=== PATIENT | female | born 1995 | race Two or more races ===

== ENCOUNTER 2016-10-22 15:50 | Emergency (ER) | payer OTHER ==
[~2016-10-22] VITALS: Ht 152.4 cm; Wt 54.4 kg
[~2016-10-22 15:50] MED LIST: BENADRYL25 MG ORAL; IBUPROFEN600 MG ORAL; KENALOG 0.1% CR15 GM APPLIC; MACROBID100 MG ORAL; PERCOCET 5-3251 EACH ORAL; PREDNISONE20 MG ORAL; ZOFRAN ODT4 MG ORAL
--- NOTE | 2016-10-22 16:33 | Emergency Room Report ---
History of Present Illness General Chief Complaint: Pain Source: Patient Present Illness HPI 21-year-old female presents emergency department complaining of 10 out of 10 in severity lower abdominal cramping pain times one day with onset of her menstrual cycle. Patient reports a history of dysmenorrhea which she is often prescribed [place] for her. Patient states she also has had several episodes of loose stool in addition to nausea and vomiting since this a.m. Patient states that usually her painful menstrual cycle is associated with nausea and vomiting however and mildly loose stools, however this morning's 2 episodes of diarrhea is a newer symptom. She reports generalized abdominal cramping. denies fevers or chills denies low back pain. Patient fevers, or chills, denies dysuria, frequency or urgency. Denies . She denies blood in the vomit or stool denies dark tarry stools denies recent antibiotic use. Denies CP, Palpitations, LOC, AMS, dizziness, Changes in Vision, Sensation, paresthesias, or a sudden severe headache. Allergies: Uncoded Allergies: ANESTHISEA (Allergy, Severe, 03/24/15) Patient History Past Medical History: see triage record Past Surgical History: none Last Menstrual Period: 10/22/16 Now: No Immunizations: UTD Reviewed Nursing Documentation: PMH: Agreed, PSxH: Agreed Nursing Documentation-PMH Past Medical History: No Stated History Review of Systems All Other Systems: negative except mentioned in HPI Physical Exam Vital Signs Date Time Temp Pulse Resp B/P Pulse Ox O2 Delivery O2 Flow Rate FiO2 10/22/16 16:06 98.8 67 18 105/63 99 Room Air Sp02 EP Interpretation: reviewed, normal General Appearance: alert, GCS 15, non-toxic, mild distress Head: normocephalic, atraumatic Eyes: bilateral eye PERRL, bilateral eye normal inspection ENT: hearing grossly normal, normal pharynx, no angioedema, normal voice Neck: full range of motion, supple/symm/no masses Respiratory: chest non-tender, lungs clear, normal breath sounds, speaking full sentences Cardiovascular #1: regular rate, rhythm, no edema Gastrointestinal: normal bowel sounds - mildly hyperactive bs in all 4 quadrants, soft, no guarding, no rebound, tenderness - epigastric and LLQ ttp noted, no peritoneal signs, no macburny point ttp Rectal: deferred Musculoskeletal: back normal, gait/station normal, normal range of motion Neurologic: alert, oriented x3, responsive, motor strength/tone normal, sensory intact, speech normal Psychiatric: judgement/insight normal, memory normal, mood/affect normal Skin: normal color, no rash, warm/dry, well hydrated Lymphatic: no adenopathy Medical Decision Making PA Attestation Dr. Perry is my supervising Physician whom patient management has been discussed with. Diagnostic Impression: Primary Impression: UTI (urinary tract infection) Qualified Codes: N30.01 - Acute cystitis with hematuria Additional Impressions: Dysmenorrhea Abdominal pain, colicky Yeast UTI ER Course 21-year-old female presents emergency department complaining of 10 out of 10 in severity lower abdominal cramping pain times one day with onset of her menstrual cycle. Patient reports a history of dysmenorrhea which she is often prescribed [place] for her. Patient states she also has had several episodes of loose stool in addition to nausea and vomiting since this a.m. Patient states that usually her painful menstrual cycle is associated with nausea and vomiting however diarrhea is a newer symptom. She reports generalized abdominal cramping denies fevers or chills denies low back pain. Patient denies dysuria, frequency or urgency. Denies . She denies blood in the vomit or stool denies dark tarry stools denies recent antibiotic use. Ddx considered but are not limited to Gastroenteritis, dysmenorrhea, diverticulitis, acute appendicitis, diarrhea,UC, PUD, GE, pyelonephritis, pancreatitis, gallstone, PID, cystitis Vital signs: are WNL, pt. is afebrile H&PE are most consistent with dysmenorrhea and acute gastroenteritis. ORDERS: -CBC: wbc's are 12.5 remaining values are unremarkable, I believe this is consistent to gastritis and enteritis, PE does not suggest acute abdomen at this time, pt. does not have CVA tenderness - CMP: unremarkable other than elevated glucose of 156 -lipase: WNL -UA: consistent with UTI, WBC's leukocytes, Bacteria, and yeast. ED INTERVENTIONS: -4mg Zofran PO - Pt. stuck her fingers down her throat while PE was in process and did not tolerate PO, pt. states she is nauseated and needs to vomit to relieve symptoms. -4mg Zofran IV -20mg Pepcid IV - 500cc NS -10mg Bentyl PO -30mg Toradol IV - 4mg Morphine IV - After morphine pt. is relieved of pain completely and able to tolerate oral intake. - d/w pt. that we do not provide refills of controlled substances for dysmenorrhea, and instructed pt. that she needs to follow up with either her PCP or OBGYN for prescription of opiates as it is safer to be managed by one prescribing physician. -d/w pt. to follow up with either PCP or OBGYN. d/w pt. to return promptly to the ED with any change in character of current symptoms, or new symptoms. DISCHARGE: At this time pt. is stable for d/c to home. Will provide printed patient care instructions, and any necessary prescriptions. Care plan and follow up instructions have been discussed with the patient prior to discharge. Labs Test 10/22/16 16:23 10/22/16 16:32 10/22/16 17:06 Urine HCG, Qualitative Negative Urine Color Brown Urine Appearance Cloudy Urine pH 5 (4.5-8.0) Urine Specific [place] 1.025 (1.005-1.035) Urine Protein 3+ (NEGATIVE) Urine Glucose (UA) Negative (NEGATIVE) Urine Ketones 2+ (NEGATIVE) Urine Occult Blood 5+ (NEGATIVE) Urine Nitrite Negative (NEGATIVE) Urine Bilirubin Negative (NEGATIVE) Urine Urobilinogen 1 MG/DL (0.0-1.0) Urine Leukocyte Esterase 1+ (NEGATIVE) Urine RBC 20-30 /HPF (0 - 2) Urine WBC 5-10 /HPF (0 - 2) Urine Squamous Epithelial Cells Few /LPF (NONE/OCC) Urine Amorphous Sediment Moderate /LPF (NONE) Urine Bacteria Many /HPF (NONE) Urine Yeast Few /HPF (NONE) White Blood Count 12.4 K/UL (4.8-10.8) Red Blood Count 4.04 M/UL (4.20-5.40) Hemoglobin 13.2 G/DL (12.0-16.0) Hematocrit 38.9 % (37.0-47.0) Mean Corpuscular Volume 96 FL (80-99) Mean Corpuscular Hemoglobin 32.7 PG (27.0-31.0) Mean Corpuscular Hemoglobin Concent 34.0 G/DL (32.0-36.0) Red Cell Distribution Width 12.7 % (11.6-14.8) Platelet Count 200 K/UL (150-450) Mean Platelet Volume 7.1 FL (6.5-10.1) Neutrophils (%) (Auto) % (45.0-75.0) Lymphocytes (%) (Auto) % (20.0-45.0) Monocytes (%) (Auto) % (1.0-10.0) Eosinophils (%) (Auto) % (0.0-3.0) Basophils (%) (Auto) % (0.0-2.0) Sodium Level 141 mEQ/L (135-145) Potassium Level 3.5 mEQ/L (3.4-4.9) Chloride Level 100 mEQ/L (98-107) Carbon Dioxide Level 24 mEQ/L (20-30) Anion Gap 17 (5-15) Blood Urea Nitrogen 11 mg/dL (7-23) Creatinine 0.8 mg/dL (0.5-0.9) Estimat Glomerular Filtration Rate > 60 mL/min (>60) Glucose Level 156 mg/dL (74-106) Calcium Level 8.8 mg/dL (8.6-10.2) Total Bilirubin 0.5 mg/dL (0.0-1.2) Aspartate Amino Transf (AST/SGOT) 22 U/L (5-40) Alanine Aminotransferase (ALT/SGPT) 14 U/L (3-33) Alkaline Phosphatase 45 U/L (35-104) Total Protein 7.6 g/dL (6.6-8.7) Albumin 4.5 g/dL (3.5-5.2) Globulin 3.1 g/dL Albumin/Globulin Ratio 1.4 (1.0-2.7) Lipase 19 U/L (< 60) Last Vital Signs Date Time Temp Pulse Resp B/P Pulse Ox O2 Delivery O2 Flow Rate FiO2 10/22/16 16:06 98.8 67 18 105/63 99 Room Air Disposition: HOME, SELF-CARE Condition: Stable Scripts Fluconazole (FLUCONAZOLE) 100 Mg Tablet 100 MG ORAL DAILY for 3 Days, #3 TAB 0 Refills Prov: Sharon Berry P.A. 10/22/16 Dicyclomine Hcl* (BENTYL*) 10 Mg Capsule 10 MG ORAL FOUR TIMES A DAY for 2 Days, #8 CAP Prov: Sharon Berry 10/22/16 Ondansetron Odt* (ZOFRAN ODT*) 4 Mg Tab.rapdis 4 MG ORAL Q6H Y for Nausea & Vomiting, #20 TAB Prov: Sharon BerryA. 10/22/16 Acetaminophen With Codeine (T#3) (TYLENOL #3 TAB*) Y Tab 1 TAB ORAL Q4H Y for For Pain, #3 TAB Prov: Sharon Berry 10/22/16 Ibuprofen* (MOTRIN*) 600 Mg Tablet 600 MG ORAL THREE TIMES A DAY, #20 TAB 0 Refills Prov: Sharon Berry 10/22/16 Patient Instructions: Abdominal Pain, Adult, [id number], Dysmenorrhea, Easy- to-Read Additional Instructions: Take medications as directed. Follow up with PCP or OBGYN in 3 days Return sooner to ED if new symptoms occur, or current symptoms become worse. *!* Review provided list of free or reduced cost health clinics for follow up * !* - Please note that this Emergency Department Report was dictated using [email or web address] first assistant technology software, occasionally this can lead to erroneous entry secondary to interpretation by the dictation equipment. Sharon Berry October 22, 2016 16:33
[2016-10-22] MEDS ORDERED: Ketorolac 30mg Inj IV ONE (16:45)
[2016-10-22] MEDS ORDERED: Famotidine 20 MG/ 2ML VIAL IVP ONE (16:45)
[2016-10-22 17:20] LABS: MEAN CORPUSCULAR HEMOGLOBIN 32.7 PG (27.0-31.0); MEAN CORPUSCULAR VOLUME 96 FL (80-99); MEAN PLATELET VOLUME 7.1 FL (6.5-10.1); PLATELET COUNT 200 K/UL (150-450); RED BLOOD COUNT 4.04 M/UL (4.20-5.40); RED CELL DISTRIBUTION WIDTH 12.7 % (11.6-14.8); WHITE BLOOD COUNT 12.4 K/UL (4.8-10.8)
[2016-10-22 17:40] LABS: ALANINE AMINOTRANSFERASE 14 U/L (3-33); ALBUMIN/GLOBULIN RATIO 1.4 (1.0-2.7); ANION GAP 17 (5-15); ASPARTATE AMINO TRANSFERASE 22 U/L (5-40); CALCIUM 8.8 mg/dL (8.6-10.2); CARBON DIOXIDE 24 mEQ/L (20-30); CHLORIDE 100 mEQ/L (98-107); CREATININE 0.8 mg/dL (0.5-0.9); GLOMERULAR FILTRATION RATE > 60 mL/min (>60); HEMOLYSIS 1; LIPASE 19 U/L (< 60); POTASSIUM 3.5 mEQ/L (3.4-4.9); SODIUM 141 mEQ/L (135-145); TOTAL PROTEIN 7.6 g/dL (6.6-8.7)
[2016-10-22] MEDS ORDERED: Morphine Sulfate 4mg/ml Inj IVP ONE (17:45)
[2016-10-22 17:50] LABS: APPEARANCE,URINE CLOUDY; KETONES,URINE 2+ (NEGATIVE); LEUKOCYTE ESTERASE ,URINE 1+ (NEGATIVE); NITRITE,URINE NEGATIVE (NEGATIVE); PH,URINE 5 (4.5-8.0); PROTEIN,URINE 3+ (NEGATIVE); UROBILINOGEN,URINE 1 MG/DL (0.0-1.0)
[2016-10-22 17:57] LABS: RBC,URINE 20-30 /HPF (0 - 2)
[2016-10-22 17:58] LABS: AMORPHOUS SEDIMENT,UR MODERATE /LPF; BACTERIA,URINE MANY /HPF; SQUAMOUS EPITHELIAL CELL,UR FEW /LPF (NONE/OCC); YEAST,URINE FEW /HPF
[2016-10-22 18:01] VITALS: BP 118/76
[2016-10-22] MEDS ORDERED: Dicyclomine HCl 10mg/5ml oral soln ORAL ONE (18:15)
[2016-10-22] MEDS ORDERED: IBUPROFEN600 MG ORAL (18:29)
[2016-10-22] MEDS ORDERED: BENTYL10 MG ORAL (18:29)
[2016-10-22] MEDS ORDERED: ZOFRAN ODT4 MG ORAL (18:29)
[2016-10-22] MEDS ORDERED: ACETAMINOPHEN-1 EAC1 ORAL (18:29)
[2016-10-22 18:47] VITALS: BP 125/74
[2016-10-22 19:28] LABS: BAND NEUTROPHILS % (MANUAL) 0 % (0-8); BASOPHILS % (MANUAL) 0 % (0-2); EOSINOPHILS % (MANUAL) 1 % (0-3); LYMPHOCYTES % (MANUAL) 8 % (20-45); NEUTROPHILS % (MANUAL) 87 % (45-75); PLATELET ESTIMATE ADEQUATE; PLATELET MORPHOLOGY NORMAL; TOTAL CELLS COUNTED 100
[2016-10-22] MEDS ORDERED: FLUCONAZOLE100 MG ORAL (21:44)
== END 2016-10-22 18:48 | disposition home or self-care (01) ==
LOC: EMR 16:45
DX: R10.30 Lower abdominal pain, unspecified (principal); N39.0 Urinary tract infection, site not specified; N94.6 Dysmenorrhea, unspecified; B37.49 Other urogenital candidiasis
CPT/HCPCS: 36415; 80053; 81003; 81025; 83690; 85007; 85025; 87086; 96360; 96361; 96374; 96375; 99284; J1885; J2270; J2405; J7040; S0028

== ENCOUNTER 2017-02-22 17:01 | Emergency (ER) | payer OTHER ==
[~2017-02-22] VITALS: Ht 162.6 cm; Wt 49.9 kg
[~2017-02-22 17:01] MED LIST changes: +ACETAMINOPHEN-1 EAC1 ORAL; +BENTYL10 MG ORAL; +FLUCONAZOLE100 MG ORAL
[2017-02-22 17:28] VITALS: BP 116/75
--- NOTE | 2017-02-22 17:47 | Emergency Room Report ---
History of Present Illness General Chief Complaint: Abdominal Pain Source: Patient Present Illness HPI 21-year-old female presents to the emergency department complaining of vomiting , nausea, and 10/10 in severity lower abdominal pain described as cramping since yesterday. Patient reports that she is currently on her period and intermittently has very painful periods but present in this fashion. Patient denies changes in character from previous episodes. denies constipation or diarrhea, denies ill contacts or recent travel. denies blood in the vomit or stool. Patient denies fevers or chills. Patient states that she was placed onto oral contraceptives by her PRODUCT MARKETING ANALYST to help minimize painful periods however she continues to have symptoms. Patient denies vaginal discharge other than bleeding, denies dyspareunia or history of STDs. Denies frequency, dysuria, hematuria.Denies CP, Palpitations, LOC, AMS, dizziness, Changes in Vision, Sensation, paresthesias, or a sudden severe headache. Allergies: Uncoded Allergies: ANESTHISEA (Allergy, Severe, 03/24/15) Patient History Past Medical History: see triage record Past Surgical History: none Pertinent Family History: none Last Menstrual Period: 02/21/17 Now: No Reviewed Nursing Documentation: PMH: Agreed, PSxH: Agreed Nursing Documentation-PMH Past Medical History: No Stated History Review of Systems All Other Systems: negative except mentioned in HPI Physical Exam Vital Signs Date Time Temp Pulse Resp B/P (MAP) Pulse Ox O2 Delivery O2 Flow Rate FiO2 02/22/17 17:12 98.1 69 16 116/75 100 Room Air Sp02 EP Interpretation: reviewed, normal General Appearance: no apparent distress, alert, GCS 15, non-toxic Head: normocephalic, atraumatic Eyes: bilateral eye normal inspection, bilateral eye PERRL ENT: hearing grossly normal, normal voice Neck: full range of motion Respiratory: lungs clear, normal breath sounds, speaking full sentences Cardiovascular #1: regular rate, rhythm Gastrointestinal: normal bowel sounds, non tender, soft, no guarding, no rebound, tenderness - moderate lower midline abd/ pubic ttp, no peritoneal signs , no unilateral adnexal ttp. , other Rectal: deferred Genitourinary: normal inspection, no CVA tenderness Musculoskeletal: back normal, gait/station normal, normal range of motion, non- tender Neurologic: alert, oriented x3, responsive, motor strength/tone normal, sensory intact, speech normal Psychiatric: judgement/insight normal, memory normal, mood/affect normal Skin: normal color, no rash, warm/dry, well hydrated Lymphatic: no adenopathy Medical Decision Making PA Attestation Dr. Antonio is my supervising Physician whom patient management has been discussed with. Diagnostic Impression: Primary Impression: Dysmenorrhea ER Course 21-year-old female presents to the emergency department complaining of vomiting , nausea, and 10/10 in severity lower abdominal pain described as cramping since yesterday. Patient reports that she is currently on her period and intermittently has very painful periods but present in this fashion. Patient denies changes in character from previous episodes. denies constipation or diarrhea, denies ill contacts or recent travel. denies blood in the vomit or stool. Patient denies fevers or chills. Patient states that she was placed onto oral contraceptives by her PRODUCT MARKETING ANALYST to help minimize painful periods however she continues to have symptoms. Patient denies vaginal discharge other than bleeding, denies dyspareunia or history of STDs. Denies frequency, dysuria, hematuria.Denies CP, Palpitations, LOC, AMS, dizziness, Changes in Vision, Sensation, paresthesias, or a sudden severe headache. Ddx considered but are not limited to Diverticulitis, acute appy, diarrhea,UC, PUD, GE, pancreatitis, gallstone, UTI , , dysmenorrhea, ovarian torsion just to name a few Vital signs: are WNL, pt. is afebrile H&PE are most consistent with dysmennorrhea, will do basic lab work. ORDERS: -CBC, CMP, lipase : unremarkable, electrolytes ok, no evidence of infection -UA: unremarkable -Urine Hcg : Negative ED INTERVENTIONS: -- zofran 4mg. -Toradol IV 15mg -Re-evaluation: pt. states she feels much better, has not exhibited vomiting while in the ED. pt. states pain has resolved. I do not suspect an emergent condition at this time. with current presentation pt. is stable for close outpatient follow up. D/w pt. to return to ED with worsening or new symptoms. DISCHARGE: At this time pt. is stable for d/c to home. Will provide printed patient care instructions, and any necessary prescriptions. Care plan and follow up instructions have been discussed with the patient prior to discharge. Labs Test 9/4/17 18:50 02/22/17 18:55 White Blood Count 10.7 K/UL (4.8-10.8) Red Blood Count 3.72 M/UL (4.20-5.40) Hemoglobin 12.3 G/DL (12.0-16.0) Hematocrit 35.9 % (37.0-47.0) Mean Corpuscular Volume 96 FL (80-99) Mean Corpuscular Hemoglobin 32.9 PG (27.0-31.0) Mean Corpuscular Hemoglobin Concent 34.1 G/DL (32.0-36.0) Red Cell Distribution Width 11.8 % (11.6-14.8) Platelet Count 197 K/UL (150-450) Mean Platelet Volume 7.2 FL (6.5-10.1) Neutrophils (%) (Auto) % (45.0-75.0) Lymphocytes (%) (Auto) % (20.0-45.0) Monocytes (%) (Auto) % (1.0-10.0) Eosinophils (%) (Auto) % (0.0-3.0) Basophils (%) (Auto) % (0.0-2.0) Sodium Level 143 mEQ/L (135-145) Potassium Level 4.2 mEQ/L (3.4-4.9) Chloride Level 106 mEQ/L (98-107) Carbon Dioxide Level 25 mEQ/L (20-30) Anion Gap 12 (5-15) Blood Urea Nitrogen 10 mg/dL (7-23) Creatinine 0.8 mg/dL (0.5-0.9) Estimat Glomerular Filtration Rate > 60 mL/min (>60) Glucose Level 87 mg/dL (74-106) Calcium Level 9.1 mg/dL (8.6-10.2) Total Bilirubin 0.5 mg/dL (0.0-1.2) Aspartate Amino Transf (AST/SGOT) 15 U/L (5-40) Alanine Aminotransferase (ALT/SGPT) 6 U/L (3-33) Alkaline Phosphatase 44 U/L (35-104) Total Protein 7.5 g/dL (6.6-8.7) Albumin 4.6 g/dL (3.5-5.2) Globulin 2.9 g/dL Albumin/Globulin Ratio 1.5 (1.0-2.7) Lipase 22 U/L (< 60) Urine Color Yellow Urine Appearance Clear Urine pH 5 (4.5-8.0) Urine Specific [place] 1.025 (1.005-1.035) Urine Protein 2+ (NEGATIVE) Urine Glucose (UA) Negative (NEGATIVE) Urine Ketones 4+ (NEGATIVE) Urine Occult Blood 4+ (NEGATIVE) Urine Nitrite Negative (NEGATIVE) Urine Bilirubin Negative (NEGATIVE) Urine Urobilinogen 1 MG/DL (0.0-1.0) Urine Leukocyte Esterase 1+ (NEGATIVE) Urine RBC 5-10 /HPF (0 - 2) Urine WBC 2-4 /HPF (0 - 2) Urine Squamous Epithelial Cells Few /LPF (NONE/OCC) Urine Bacteria Few /HPF (NONE) Urine HCG, Qualitative Negative Last Vital Signs Date Time Temp Pulse Resp B/P (MAP) Pulse Ox O2 Delivery O2 Flow Rate FiO2 02/22/17 17:28 98.1 16 116/75 100 Room Air 02/22/17 17:12 69 Disposition: HOME, SELF-CARE Condition: Stable Scripts Ondansetron Odt* (ZOFRAN ODT*) 4 Mg Tab.rapdis 4 MG ORAL Q6H Y for Nausea & Vomiting, #20 TAB Prov: Sharon Berry 02/22/17 Ibuprofen* (MOTRIN*) 600 Mg Tablet 600 MG ORAL THREE TIMES A DAY, #20 TAB 0 Refills Prov: Sharon Berry 02/22/17 Patient Instructions: Dysmenorrhea, [id number] Additional Instructions: Take medications as directed. Follow up with a Primary Care Provider in 3-5 days, even if your symptoms have resolved. --Please review list of primary care clinics, if you do not already have a primary care provider Return sooner to ED if new symptoms occur, or current symptoms become worse. - Please note that this Emergency Department Report was dictated using [email or web address] designer technology software, occasionally this can lead to erroneous entry secondary to interpretation by the dictation equipment. Sharon Berry Feb 22, 2017 17:47
[2017-02-22] MEDS ORDERED: Ketorolac 60mg Inj IM ONE (18:45)
[2017-02-22 19:06] LABS: MEAN CORPUSCULAR HEMOGLOBIN 32.9 PG (27.0-31.0); MEAN CORPUSCULAR HGB CONC 34.1 G/DL (32.0-36.0); MEAN CORPUSCULAR VOLUME 96 FL (80-99); MEAN PLATELET VOLUME 7.2 FL (6.5-10.1); PLATELET COUNT 197 K/UL (150-450); RED BLOOD COUNT 3.72 M/UL (4.20-5.40); RED CELL DISTRIBUTION WIDTH 11.8 % (11.6-14.8); WHITE BLOOD COUNT 10.7 K/UL (4.8-10.8)
[2017-02-22 19:08] LABS: APPEARANCE,URINE CLEAR; KETONES,URINE 4+ (NEGATIVE); LEUKOCYTE ESTERASE ,URINE 1+ (NEGATIVE); NITRITE,URINE NEGATIVE (NEGATIVE); PH,URINE 5 (4.5-8.0); PROTEIN,URINE 2+ (NEGATIVE); UROBILINOGEN,URINE 1 MG/DL (0.0-1.0)
[2017-02-22 19:16] LABS: ALANINE AMINOTRANSFERASE 6 U/L (3-33); ALBUMIN/GLOBULIN RATIO 1.5 (1.0-2.7); ANION GAP 12 (5-15); ASPARTATE AMINO TRANSFERASE 15 U/L (5-40); CALCIUM 9.1 mg/dL (8.6-10.2); CARBON DIOXIDE 25 mEQ/L (20-30); CHLORIDE 106 mEQ/L (98-107); CREATININE 0.8 mg/dL (0.5-0.9); GLOMERULAR FILTRATION RATE > 60 mL/min (>60); HEMOLYSIS 3; LIPASE 22 U/L (< 60); POTASSIUM 4.2 mEQ/L (3.4-4.9); SODIUM 143 mEQ/L (135-145); TOTAL PROTEIN 7.5 g/dL (6.6-8.7)
[2017-02-22 19:19] LABS: BACTERIA,URINE FEW /HPF; SQUAMOUS EPITHELIAL CELL,UR FEW /LPF (NONE/OCC)
[2017-02-22] MEDS ORDERED: ZOFRAN ODT4 MG ORAL (19:39)
[2017-02-22] MEDS ORDERED: IBUPROFEN600 MG ORAL (19:39)
[2017-02-22 20:00] VITALS: BP 120/80
[2017-02-22 20:15] LABS: BAND NEUTROPHILS % (MANUAL) 1 % (0-8); BASOPHILS % (MANUAL) 0 % (0-2); EOSINOPHILS % (MANUAL) 0 % (0-3); LYMPHOCYTES % (MANUAL) 6 % (20-45); NEUTROPHILS % (MANUAL) 89 % (45-75); PLATELET ESTIMATE ADEQUATE; PLATELET MORPHOLOGY NORMAL; TOTAL CELLS COUNTED 100
== END 2017-02-22 20:00 | disposition home or self-care (01) ==
LOC: EMR 17:31
DX: N94.6 Dysmenorrhea, unspecified (principal); Z79.3 Long term (current) use of hormonal contraceptives; Z88.8 Allergy status to other drugs, medicaments and biological substances
CPT/HCPCS: 36415; 80053; 81003; 81025; 83690; 85007; 85025; 96372; 96374; 99284; J2405

== ENCOUNTER 2017-06-27 13:44 | Emergency (ER) | payer OTHER ==
[~2017-06-27] VITALS: Ht 154.9 cm; Wt 52.2 kg
[2017-06-27] MEDS ORDERED: NKM (14:07)
[2017-06-27] MEDS ORDERED: Ketorolac 30mg Inj IV ONE (14:15)
--- NOTE | 2017-06-27 14:17 | Emergency Room Report ---
History of Present Illness General Chief Complaint: Abdominal Pain Source: Patient Present Illness HPI 21-year-old female, history of dysmenorrhea, multiple visits to the emergency room p/w abdominal pain for one day. Patient states pain started after getting her period yesterday, points to suprapubic region, non radiating, cramping in nature, intermittent. No relieving or exacerbating factors. Severity is 5/10. Pt reports n/v, more than 5 episodes of nbnb vomiting, denies diarrhea Denies fever, chills. No hx of abdominal surgeries. No hx of endoscopies/colonoscopies. States that she has experienced the same pain in the past, usually happens every month with her periods. States she went to see an MOVEMENT THERAPIST who put her on control, however was not able to follow up with her because of insurance Allergies: Uncoded Allergies: ANESTHISEA (Allergy, Severe, 03/24/15) Patient History Past Medical History: see triage record Past Surgical History: none Pertinent Family History: none Last Menstrual Period: Current Reviewed Nursing Documentation: PMH: Agreed, PSxH: Agreed Nursing Documentation-PMH Past Medical History: No Stated History Review of Systems All Other Systems: negative except mentioned in HPI Physical Exam Vital Signs Date Time Temp Pulse Resp B/P (MAP) Pulse Ox O2 Delivery O2 Flow Rate FiO2 06/27/17 14:02 98.1 53 20 125/86 99 Room Air Sp02 EP Interpretation: reviewed, normal General Appearance: alert, GCS 15, non-toxic, mild distress Head: normocephalic, atraumatic Eyes: bilateral eye normal inspection, bilateral eye PERRL, bilateral eye EOMI ENT: normal ENT inspection, normal pharynx, normal voice, moist mucus membranes Neck: normal inspection, full range of motion, supple Respiratory: normal inspection, lungs clear, normal breath sounds, no respiratory distress, no retraction, no wheezing, speaking full sentences, chest symmetrical Cardiovascular #1: normal inspection, regular rate, rhythm, normal capillary refill Cardiovascular #2: 2+ radial (R), 2+ radial (L) Gastrointestinal: normal inspection, non tender, soft, non-distended, no guarding Musculoskeletal: normal inspection, back normal, normal range of motion, non- tender Neurologic: normal inspection, alert, oriented x3, responsive, motor strength/ tone normal, sensory intact, normal gait, speech normal Psychiatric: normal inspection, judgement/insight normal, memory normal Skin: normal inspection, normal color, no rash, warm/dry, well hydrated, normal turgor Medical Decision Making Diagnostic Impression: Primary Impression: Dysmenorrhea Additional Impression: UTI (urinary tract infection) ER Course 21-year-old female, history of dysmenorrhea, with suprapubic abdominal pain Differential Diagnosis: Dysmenorrhea Gastritis, gastroenteritis, cholecystitis, appendicitis, diverticulitis, UTI/ pyelo Ovarian pathology At this time abdomen is soft nontender all quadrants, not likely to have acute intra-abdominal surgical pathology, will hold CT for now. Plan: Basic labs, ua pain control, IVF ER course: Patient has remained stable during ED stay. Pain improved. Repeat abdominal exam is nontender. Tolerating PO +UTI will dc with abx Disposition: Patient is to be discharged to home. Prescriptions given are Motrin + macrobid and pyridium Patient is instructed to follow up with their primary care doctor within 5 days. Patient is instructed to follow up with MOVEMENT THERAPIST within 3 days. Strict return precautions discussed with patient such as fever, chills, worsening/severe abdominal pain, nausea, vomiting, black or bloody stools, which may indicate severe illness. Patient verbalizes understanding and agrees with plan. Please note that this Emergency Department Report was dictated using [email or web address] teacher technology software, occasionally this can lead to erroneous entry secondary to interpretation by the dictation equipment Rhythm Strip EP Interpretation: Yes Rate: 52 Rhythm: NSR, no PVCs, no ectopy Laboratory Tests Test 06/27/17 14:15 06/27/17 15:45 White Blood Count 9.4 K/UL (4.8-10.8) Red Blood Count 4.14 M/UL (4.20-5.40) L Hemoglobin 12.9 G/DL (12.0-16.0) Hematocrit 39.2 % (37.0-47.0) Mean Corpuscular Volume 95 FL (80-99) Mean Corpuscular Hemoglobin 31.0 PG (27.0-31.0) Mean Corpuscular Hemoglobin Concent 32.8 G/DL (32.0-36.0) Red Cell Distribution Width 12.7 % (11.6-14.8) Platelet Count 226 K/UL (150-450) Mean Platelet Volume 7.5 FL (6.5-10.1) Neutrophils (%) (Auto) % (45.0-75.0) Lymphocytes (%) (Auto) % (20.0-45.0) Monocytes (%) (Auto) % (1.0-10.0) Eosinophils (%) (Auto) % (0.0-3.0) Basophils (%) (Auto) % (0.0-2.0) Differential Total Cells Counted 100 Neutrophils % (Manual) 85 % (45-75) H Lymphocytes % (Manual) 8 % (20-45) L Monocytes % (Manual) 5 % (1-10) Eosinophils % (Manual) 2 % (0-3) Basophils % (Manual) 0 % (0-2) Band Neutrophils 0 % (0-8) Platelet Estimate Adequate Platelet Morphology Normal Red Blood Cell Morphology Normal Sodium Level 141 MMOL/L (136-145) Potassium Level 3.7 MMOL/L (3.5-5.1) Chloride Level 109 MMOL/L (98-107) H Carbon Dioxide Level 24 MMOL/L (21-32) Anion Gap 8 mmol/L (5-15) Blood Urea Nitrogen 10 mg/dL (7-18) Creatinine 0.7 MG/DL (0.55-1.30) Estimate Glomerular Filtration Rate > 60 mL/min (>60) Glucose Level 101 MG/DL (74-106) Calcium Level 7.8 MG/DL (8.5-10.1) L Total Bilirubin 0.6 MG/DL (0.2-1.0) Aspartate Amino Transferase (AST) 26 U/L (15-37) Alanine Aminotransferase (ALT) 26 U/L (12-78) Alkaline Phosphatase 49 U/L (46-116) Total Protein 7.9 G/DL (6.4-8.2) Albumin 4.1 G/DL (3.4-5.0) Globulin 3.8 g/dL Albumin/Globulin Ratio 1.1 (1.0-2.7) Lipase 94 U/L (73-393) Urine Color Pale yellow Urine Appearance Slightly cloudy Urine pH 8 (4.5-8.0) Urine Specific [place] 1.010 (1.005-1.035) Urine Protein 2+ (NEGATIVE) H Urine Glucose (UA) Negative (NEGATIVE) Urine Ketones 3+ (NEGATIVE) H Urine Occult Blood 5+ (NEGATIVE) H Urine Nitrite Negative (NEGATIVE) Urine Bilirubin Negative (NEGATIVE) Urine Urobilinogen 1 MG/DL (0.0-1.0) H Urine Leukocyte Esterase 1+ (NEGATIVE) H Urine RBC Tntc /HPF (0 - 2) H Urine WBC 5-10 /HPF (0 - 2) H Urine Squamous Epithelial Cells Moderate /LPF (NONE/OCC) H Urine Bacteria Moderate /HPF (NONE) H Urine Mucus Few /LPF (NONE/OCC) H Urine HCG, Qualitative Negative Last Vital Signs Date Time Temp Pulse Resp B/P (MAP) Pulse Ox O2 Delivery O2 Flow Rate FiO2 06/27/17 14:02 98.1 53 20 125/86 99 Room Air Disposition: HOME, SELF-CARE Condition: Improved Scripts Phenazopyridine Hcl* (PYRIDIUM*) 200 Mg Tablet 200 MG ORAL THREE TIMES A DAY, #14 TAB 0 Refills Prov: Dalila Min M.D. 06/27/17 Nitrofurantoin Monohyd/M-Cryst* (MACROBID 100 MG*) 100 Mg Capsule 100 MG ORAL EVERY 12 HOURS for 7 Days, #14 CAP 0 Refills Prov: Dalila Min M.D. 06/27/17 Ibuprofen* (MOTRIN*) 600 Mg Tablet 600 MG ORAL Q8H Y for For Pain, #30 TAB 0 Refills Prov: Dalila Min M.D. 06/27/17 Patient Instructions: Abdominal Pain, Adult, Dysmenorrhea Dalila Min M.D. Jun 27, 2017 14:17
[2017-06-27 14:36] LABS: HEMATOCRIT 39.2 % (37.0-47.0); HEMOGLOBIN 12.9 G/DL (12.0-16.0); MEAN CORPUSCULAR VOLUME 95 FL (80-99); PLATELET COUNT 226 K/UL (150-450); RED BLOOD COUNT 4.14 M/UL (4.20-5.40); RED CELL DISTRIBUTION WIDTH 12.7 % (11.6-14.8); WHITE BLOOD COUNT 9.4 K/UL (4.8-10.8)
[2017-06-27 14:39] LABS: ANION GAP 8 mmol/L (5-15); BLOOD UREA NITROGEN 10 mg/dL (7-18); CALCIUM 7.8 MG/DL (8.5-10.1); CARBON DIOXIDE 24 MMOL/L (21-32); CHLORIDE 109 MMOL/L (98-107); CREATININE 0.7 MG/DL (0.55-1.30); POTASSIUM 3.7 MMOL/L (3.5-5.1); SODIUM 141 MMOL/L (136-145)
[2017-06-27 14:44] LABS: ALANINE AMINOTRANSFERASE 26 U/L (12-78); ALBUMIN 4.1 G/DL (3.4-5.0); ALBUMIN/GLOBULIN RATIO 1.1 (1.0-2.7); ALKALINE PHOSPHATASE 49 U/L (46-116); ASPARTATE AMINO TRANSFERASE 26 U/L (15-37); BILIRUBIN,TOTAL 0.6 MG/DL (0.2-1.0)
[2017-06-27] MEDS ORDERED: IBUPROFEN600 MG ORAL (15:31)
[2017-06-27 16:08] LABS: APPEARANCE,URINE SLIGHTLY CLOUDY; BILIRUBIN, URINE NEGATIVE (NEGATIVE); COLOR,URINE PALE YELLOW; GLUCOSE, URINE (UA) NEGATIVE (NEGATIVE); KETONES,URINE 3+ (NEGATIVE); LEUKOCYTE ESTERASE ,URINE 1+ (NEGATIVE); NITRITE,URINE NEGATIVE (NEGATIVE); PH,URINE 8 (4.5-8.0); PROTEIN,URINE 2+ (NEGATIVE); UROBILINOGEN,URINE 1 MG/DL (0.0-1.0)
[2017-06-27] MEDS ORDERED: NITROFURANTOIN100 M2 ORAL (16:23)
[2017-06-27] MEDS ORDERED: PHENAZOPYRIDIN200 MG ORAL (16:23)
[2017-06-27 16:40] VITALS: BP 102/62
== END 2017-06-27 16:40 | disposition home or self-care (01) ==
LOC: EMR 14:10
DX: N94.6 Dysmenorrhea, unspecified (principal); N39.0 Urinary tract infection, site not specified; R10.9 Unspecified abdominal pain; Z88.4 Allergy status to anesthetic agent
CPT/HCPCS: 36415; 80053; 81003; 81025; 83690; 85007; 85025; 87086; 96361; 96374; 96375; 99284; J1885; J2405

== ENCOUNTER 2017-08-01 23:32 | Emergency (ER) | payer OTHER ==
[~2017-08-01] VITALS: Ht 160 cm; Wt 49.9 kg
[~2017-08-01 23:32] MED LIST changes: +NITROFURANTOIN100 M2 ORAL; +NKM; +PHENAZOPYRIDIN200 MG ORAL
--- NOTE | 2017-08-02 00:05 | Emergency Room Report ---
History of Present Illness General Chief Complaint: Burn/Smoke Inhalation Source: Patient Present Illness HPI Patient presents with fletcher with hot grease on his happened before work on . Her parts sales manager told her not to come in after seeing photographs of the blisters. The blisters have popped out. She states her tetanus is up-to-date. She needs a note for work. Denies pain at this time. Initially used neosporin then switched to akira butter. One blister on face popped yesterday. No other somatic complaints. In past has been seen for dysmenorrhea. Allergies: Uncoded Allergies: ANESTHISEA (Allergy, Severe, 03/24/15) Patient History Past Medical History: see triage record Social History: Denies: smoking Social History Narrative working Last Menstrual Period: 06/29/17 Now: No : 0 Para: 0 Reviewed Nursing Documentation: PMH: Agreed, PSxH: Agreed Review of Systems All Other Systems: negative except mentioned in HPI Physical Exam Vital Signs Date Time Temp Pulse Resp B/P (MAP) Pulse Ox O2 Delivery O2 Flow Rate FiO2 08/01/17 23:33 76 14 150/76 99 Room Air Sp02 EP Interpretation: reviewed, normal General Appearance: well appearing, no apparent distress Head: normocephalic, atraumatic Eyes: bilateral eye normal inspection, bilateral eye PERRL ENT: hearing grossly normal, normal voice Neck: full range of motion, supple Respiratory: no respiratory distress, speaking full sentences Musculoskeletal: no calf tenderness Neurologic: alert, normal gait, grossly normal Psychiatric: mood/affect normal Skin: fletcher - face and R forearm. 1st and 2nd degree - splatters Medical Decision Making Diagnostic Impression: Primary Impression: First and second-degree fletcher ER Course Patient presents with hot oil fletcher face and R forearm several days ago. She has missed work per her parts sales manager. There is no evidence of infection at this time. She is requesting time off of work. Discussed precautions regarding the fletcher. Minimal pain at this time. Local treatment. Discussed low likelihood of scarring. Patient stable for outpatient observation and treatment. Last Vital Signs Date Time Temp Pulse Resp B/P (MAP) Pulse Ox O2 Delivery O2 Flow Rate FiO2 08/02/17 00:16 98.9 78 14 148/72 99 Room Air Status: improved Disposition: HOME, SELF-CARE Condition: Improved Scripts Bacitracin (Bacitracin) 28.4 Gm Oint...g. 1 APPLIC TOPIC BID, #20 GM Prov: Delfino Antonio M.D. 08/02/17 Delfino Antonio M.D. Aug 02, 2017 00:04
[2017-08-02] MEDS ORDERED: BACITRACIN15 GM TOPIC (00:08)
[2017-08-02 00:15] VITALS: BP 148/72
[2017-08-02] MEDS ORDERED: Bacitracin Oint UD TOPIC ONE (00:15)
[2017-08-02 00:16] VITALS: BP 148/72
[2017-08-02] MEDS ORDERED: ZOFRAN4 MG ORAL (21:03)
[2017-08-02] MEDS ORDERED: IBUPROFEN400 MG ORAL (21:03)
== END 2017-08-02 00:16 | disposition home or self-care (01) ==
LOC: EMR 23:59
DX: T20.20XA Burn of second degree of head, face, and neck, unspecified site, initial encounter (principal); T22.211A Burn of second degree of right forearm, initial encounter; X10.2XXA Contact with fats and cooking oils, initial encounter; Y93.G3 Activity, cooking and baking; Y92.9 Unspecified place or not applicable
CPT/HCPCS: 99283

== ENCOUNTER 2017-08-02 19:39 | Emergency (ER) | payer OTHER ==
[~2017-08-02] VITALS: Ht 160 cm; Wt 49.9 kg
[~2017-08-02 19:39] MED LIST changes: +BACITRACIN15 GM TOPIC
[2017-08-02] MEDS ORDERED: Ketorolac 30mg Inj IV ONE (20:30)
[2017-08-02 20:54] LABS: HEMOGLOBIN 13.6 G/DL (12.0-16.0); MEAN CORPUSCULAR VOLUME 95 FL (80-99); PLATELET COUNT 201 K/UL (150-450); RED CELL DISTRIBUTION WIDTH 12.9 % (11.6-14.8); WHITE BLOOD COUNT 8.2 K/UL (4.8-10.8)
[2017-08-02 20:55] LABS: ANION GAP 9 mmol/L (5-15); BLOOD UREA NITROGEN 9 mg/dL (7-18); CALCIUM 9.1 MG/DL (8.5-10.1); CARBON DIOXIDE 26 MMOL/L (21-32); CHLORIDE 104 MMOL/L (98-107); CREATININE 0.8 MG/DL (0.55-1.30); POTASSIUM 3.8 MMOL/L (3.5-5.1); SODIUM 139 MMOL/L (136-145)
[2017-08-02 20:56] LABS: APPEARANCE,URINE SLIGHTLY CLOUDY; BILIRUBIN, URINE NEGATIVE (NEGATIVE); COLOR,URINE RED; GLUCOSE, URINE (UA) NEGATIVE (NEGATIVE); KETONES,URINE 1+ (NEGATIVE); LEUKOCYTE ESTERASE ,URINE NEGATIVE (NEGATIVE); NITRITE,URINE NEGATIVE (NEGATIVE); PH,URINE 5 (4.5-8.0); PROTEIN,URINE 4+ (NEGATIVE); UROBILINOGEN,URINE NORMAL MG/DL (0.0-1.0)
[2017-08-02 21:00] LABS: ALANINE AMINOTRANSFERASE 18 U/L (12-78); ALBUMIN 4.1 G/DL (3.4-5.0); ALBUMIN/GLOBULIN RATIO 1.1 (1.0-2.7); ALKALINE PHOSPHATASE 50 U/L (46-116); ASPARTATE AMINO TRANSFERASE 19 U/L (15-37); BILIRUBIN,TOTAL 0.3 MG/DL (0.2-1.0)
[2017-08-02] MEDS ORDERED: ZOFRAN4 MG ORAL (21:03)
[2017-08-02] MEDS ORDERED: IBUPROFEN400 MG ORAL (21:03)
[2017-08-02] MEDS ORDERED: Acetaminophen 500mg (ES) tab ORAL ONE (21:15)
[2017-08-02] MEDS ORDERED: Haloperidol 5mg/ml Inj IM ONE (21:30)
[2017-08-02 22:12] VITALS: BP 131/83
--- NOTE | 2017-08-07 08:37 | Emergency Room Report ---
History of Present Illness General Chief Complaint: Abdominal Pain Source: Patient Present Illness HPI Patient is a 22 year old female who presented after increased suprapubic cramping. Patient had previous similar symptoms. She reports nausea and vomiting. She reports having similar episodes during menses. She denies vaginal discharge. She reports normal amount of bleeding. She reports multiple episodes of nonbloody emesis. Allergies: Uncoded Allergies: ANESTHISEA (Allergy, Severe, 03/24/15) Patient History Past Medical History: see triage record Last Menstrual Period: now Now: No Reviewed Nursing Documentation: PMH: Agreed, PSxH: Agreed Nursing Documentation-PMH Past Medical History: No History, Except For Review of Systems All Other Systems: negative except mentioned in HPI Physical Exam Vital Signs Date Time Temp Pulse Resp B/P (MAP) Pulse Ox O2 Delivery O2 Flow Rate FiO2 08/02/17 19:51 97.9 77 20 131/83 96 Room Air 97.9 Sp02 EP Interpretation: reviewed, normal General Appearance: normal inspection, well appearing, no apparent distress, alert, GCS 15, non-toxic Head: atraumatic ENT: normal ENT inspection, hearing grossly normal, normal voice Neck: normal inspection, full range of motion, supple, no bony tend Respiratory: normal inspection, lungs clear, normal breath sounds, no respiratory distress, no retraction, no wheezing Cardiovascular #1: regular rate, rhythm, no edema Gastrointestinal: normal inspection, normal bowel sounds, soft, no guarding, no hernia, tenderness - suprapubic Genitourinary: no CVA tenderness Musculoskeletal: normal inspection, back normal, normal range of motion Neurologic: normal inspection, alert, responsive, speech normal Psychiatric: normal inspection, judgement/insight normal, mood/affect normal Skin: normal inspection, normal color, no rash Medical Decision Making Diagnostic Impression: Primary Impression: Dysmenorrhea ER Course Patient presented for abdominal pain. Differential diagnosis included but was not limited to anemia, pelvic inflammatory disease, dysmenorhea, ovarian torsion , appendicitis among others. Laboratory testing was ordered due to patient complexity. Laboratory studies were unremarkable. Patient was noted to have improvement in symptoms after IV fluids and Haldol for nausea. Patient reported feeling better and wanting to leave. Patient was advised to follow up with ObGyn for further testing. She was to return for any concerns. Labs Test 08/02/17 19:55 White Blood Count 8.2 K/UL (4.8-10.8) Red Blood Count 4.40 M/UL (4.20-5.40) Hemoglobin 13.6 G/DL (12.0-16.0) Hematocrit 42.0 % (37.0-47.0) Mean Corpuscular Volume 95 FL (80-99) Mean Corpuscular Hemoglobin 30.9 PG (27.0-31.0) Mean Corpuscular Hemoglobin Concent 32.4 G/DL (32.0-36.0) Red Cell Distribution Width 12.9 % (11.6-14.8) Platelet Count 201 K/UL (150-450) Mean Platelet Volume 7.4 FL (6.5-10.1) Neutrophils (%) (Auto) % (45.0-75.0) Lymphocytes (%) (Auto) % (20.0-45.0) Monocytes (%) (Auto) % (1.0-10.0) Eosinophils (%) (Auto) % (0.0-3.0) Basophils (%) (Auto) % (0.0-2.0) Differential Total Cells Counted 100 Neutrophils % (Manual) 84 % (45-75) Lymphocytes % (Manual) 9 % (20-45) Monocytes % (Manual) 6 % (1-10) Eosinophils % (Manual) 0 % (0-3) Basophils % (Manual) 0 % (0-2) Band Neutrophils 1 % (0-8) Platelet Estimate Adequate Platelet Morphology Normal Red Blood Cell Morphology Normal Prothrombin Time 10.3 SEC (9.30-11.50) Prothromb Time International Ratio 1.0 (0.9-1.1) Activated Partial Thromboplast Time 23 SEC (23-33) Urine Color Red Urine Appearance Slightly cloudy Urine pH 5 (4.5-8.0) Urine Specific [place] 1.025 (1.005-1.035) Urine Protein 4+ (NEGATIVE) Urine Glucose (UA) Negative (NEGATIVE) Urine Ketones 1+ (NEGATIVE) Urine Occult Blood 5+ (NEGATIVE) Urine Nitrite Negative (NEGATIVE) Urine Bilirubin Negative (NEGATIVE) Urine Urobilinogen Normal MG/DL (0.0-1.0) Urine Leukocyte Esterase Negative (NEGATIVE) Urine RBC Tntc /HPF (0 - 2) Urine WBC 5-10 /HPF (0 - 2) Urine Squamous Epithelial Cells Few /LPF (NONE/OCC) Urine Bacteria Few /HPF (NONE) Urine HCG, Qualitative Negative Sodium Level 139 MMOL/L (136-145) Potassium Level 3.8 MMOL/L (3.5-5.1) Chloride Level 104 MMOL/L (98-107) Carbon Dioxide Level 26 MMOL/L (21-32) Anion Gap 9 mmol/L (5-15) Blood Urea Nitrogen 9 mg/dL (7-18) Creatinine 0.8 MG/DL (0.55-1.30) Estimat Glomerular Filtration Rate > 60 mL/min (>60) Glucose Level 159 MG/DL (74-106) Calcium Level 9.1 MG/DL (8.5-10.1) Total Bilirubin 0.3 MG/DL (0.2-1.0) Aspartate Amino Transf (AST/SGOT) 19 U/L (15-37) Alanine Aminotransferase (ALT/SGPT) 18 U/L (12-78) Alkaline Phosphatase 50 U/L (46-116) Total Protein 7.7 G/DL (6.4-8.2) Albumin 4.1 G/DL (3.4-5.0) Globulin 3.6 g/dL Albumin/Globulin Ratio 1.1 (1.0-2.7) Lipase 82 U/L (73-393) Last Vital Signs Date Time Temp Pulse Resp B/P (MAP) Pulse Ox O2 Delivery O2 Flow Rate FiO2 08/02/17 22:12 97.9 20 131/83 96 Room Air 97.9 08/02/17 19:51 77 Status: improved Disposition: HOME, SELF-CARE Condition: Stable Scripts Ondansetron (Zofran) 4 Mg Tablet 4 MG ORAL Q6H Y for Nausea & Vomiting, #30 TAB 0 Refills Prov: Theron Gimenez 08/02/17 Ibuprofen* (MOTRIN*) 400 Mg Tablet 400 MG ORAL Q8H, #30 TAB 0 Refills Prov: Theron Gimenez 08/02/17 Referrals: [facility] (PCP) Patient Instructions: Abdominal Pain, Adult Theron Gimenez Aug 07, 2017 08:37
== END 2017-08-02 22:27 | disposition home or self-care (01) ==
LOC: EMR 22:12
DX: N94.6 Dysmenorrhea, unspecified (principal)
CPT/HCPCS: 36415; 80053; 81003; 81025; 83690; 85007; 85025; 85610; 85730; 96361; 96372; 96374; 96375; 99284; J1630; J1885; J2405

== ENCOUNTER 2017-09-19 16:22 | Emergency (ER) | payer OTHER ==
[~2017-09-19] VITALS: Ht 152.4 cm; Wt 49.0 kg
[~2017-09-19 16:22] MED LIST changes: +IBUPROFEN400 MG ORAL; +ZOFRAN4 MG ORAL
[2017-09-19 17:01] LABS: APPEARANCE,URINE CLOUDY; BILIRUBIN, URINE 1+ (NEGATIVE); COLOR,URINE AMBER; GLUCOSE, URINE (UA) NEGATIVE (NEGATIVE); KETONES,URINE 4+ (NEGATIVE); LEUKOCYTE ESTERASE ,URINE 1+ (NEGATIVE); NITRITE,URINE POSITIVE (NEGATIVE); PH,URINE 5 (4.5-8.0); PROTEIN,URINE 2+ (NEGATIVE); UROBILINOGEN,URINE 1 MG/DL (0.0-1.0)
--- NOTE | 2017-09-19 17:13 | Emergency Room Report ---
History of Present Illness General Chief Complaint: Female Urogenital Problems Source: Patient Present Illness HPI 22 YO Female presents to the ED C/O 09/28 in severity dysuria, urinary urgency and scant hematuria x 2 days. pt. denies vaginal d/c, low back pain, fevers or chills. pt. reports she does not notice abdominal tenderness. reports dysuria lasts for several minutes after each visit to the rest room, with pinkish colored urine and scant blood on TP after wiping. Pt. denies , LMP was in Jul, pt. reports she is normally irregular. states she is sexually active. denies vaginal lesions, rashes, joint pain or swollen tender lymph-nodes. Denies CP, Palpitations, LOC, AMS, dizziness, Changes in Vision, Sensation, paresthesias, or a sudden severe headache. Allergies: Uncoded Allergies: ANESTHISEA (Allergy, Severe, 03/24/15) Patient History Past Medical History: see triage record Past Surgical History: none Pertinent Family History: none Last Menstrual Period: 08/02/17 Reviewed Nursing Documentation: PMH: Agreed; PSxH: Agreed Review of Systems All Other Systems: negative except mentioned in HPI Physical Exam Vital Signs Date Time Temp Pulse Resp B/P (MAP) Pulse Ox O2 Delivery O2 Flow Rate FiO2 09/19/17 16:34 98.7 69 17 101/52 100 Room Air 98.8 Sp02 EP Interpretation: reviewed, normal General Appearance: no apparent distress, alert, GCS 15, non-toxic Head: normocephalic, atraumatic ENT: hearing grossly normal, normal voice Neck: full range of motion Respiratory: lungs clear, normal breath sounds, speaking full sentences Cardiovascular #1: regular rate, rhythm Gastrointestinal: normal bowel sounds, non tender, soft Rectal: deferred Genitourinary: normal inspection, no CVA tenderness Musculoskeletal: back normal, gait/station normal, normal range of motion, non- tender Neurologic: alert, oriented x3, responsive, sensory intact, speech normal, grossly normal Psychiatric: judgement/insight normal Skin: normal color, no rash, warm/dry, well hydrated Medical Decision Making PA Attestation Dr. Gimenez is my supervising Physician whom patient management has been discussed with. Diagnostic Impression: Primary Impression: UTI (urinary tract infection) Qualified Codes: N30.01 - Acute cystitis with hematuria ER Course 22 YO Female presents to the ED C/O 09/28 in severity dysuria, urinary urgency and scant hematuria x 2 days. pt. denies vaginal d/c, low back pain, fevers or chills. pt. reports she does not notice abdominal tenderness. reports dysuria lasts for several minutes after each visit to the rest room, with pinkish colored urine and scant blood on TP after wiping. Pt. denies . denies vaginal lesions, rashes, joint pain or swollen tender lymph-nodes. Denies CP, Palpitations, LOC, AMS, dizziness, Changes in Vision, Sensation, paresthesias, or a sudden severe headache. Ddx considered but are not limited to UTi , Pyelo, STI, Stone, Cystitis Vital signs: are WNL, pt. is afebrile H&PE are most consistent with UTI ORDERS: - UA labs are attached : Nitrite Positive, Elevated Leukocyte esterase and WBC' s. ED INTERVENTIONS: -Pyridium PO DISCHARGE: At this time pt. is stable for d/c to home. Will provide printed patient care instructions, and any necessary prescriptions. Care plan and follow up instructions have been discussed with the patient prior to discharge. Labs Test 09/19/17 16:40 Urine Color [place] Urine Appearance Cloudy Urine pH 5 (4.5-8.0) Urine Specific [place] 1.025 (1.005-1.035) Urine Protein 2+ (NEGATIVE) Urine Glucose (UA) Negative (NEGATIVE) Urine Ketones 4+ (NEGATIVE) Urine Occult Blood 1+ (NEGATIVE) Urine Nitrite Positive (NEGATIVE) Urine Bilirubin 1+ (NEGATIVE) Urine Ictotest Negative Urine Urobilinogen 1 MG/DL (0.0-1.0) Urine Leukocyte Esterase 1+ (NEGATIVE) Urine RBC 2-4 /HPF (0 - 2) Urine WBC 15-20 /HPF (0 - 2) Urine Squamous Epithelial Cells Many /LPF (NONE/OCC) Urine Bacteria Moderate /HPF (NONE) Urine HCG, Qualitative Negative (NEGATIVE) Last Vital Signs Date Time Temp Pulse Resp B/P (MAP) Pulse Ox O2 Delivery O2 Flow Rate FiO2 09/19/17 16:34 98.7 69 17 101/52 100 Room Air 98.8 Disposition: HOME, SELF-CARE Condition: Stable Scripts Phenazopyridine Hcl* (PYRIDIUM*) 200 Mg Tablet 200 MG ORAL THREE TIMES A DAY for 3 Days, #9 TAB 0 Refills Prov: Sharon Berry 09/19/17 Cephalexin* (KEFLEX*) 500 Mg Capsule 500 MG ORAL EVERY 12 HOURS, #14 CAP 0 Refills Prov: Sharon Berry 09/19/17 Patient Instructions: Urinary Tract Infection Additional Instructions: Take medications as directed. Pyridium will cause your urine to change color (Red/[place]), this is a normal side effect of the medication. Follow up with a Primary Care Provider in 3-5 days, even if your symptoms have resolved. --Please review list of primary care clinics, if you do not already have a primary care provider Return sooner to ED if new symptoms occur, or current symptoms become worse. - Please note that this Emergency Department Report was dictated using [employer] graphic artist technology software, occasionally this can lead to erroneous entry secondary to interpretation by the dictation equipment. Sharon Berry Sep 19, 2017 17:13
[2017-09-19] MEDS ORDERED: Phenazopyridine 200mg tab ORAL ONE (17:15)
[2017-09-19 17:20] VITALS: BP 93/61
[2017-09-19] MEDS ORDERED: PHENAZOPYRIDIN200 MG ORAL (17:20)
[2017-09-19] MEDS ORDERED: CEPHALEXIN500 MG ORAL (17:20)
[2017-09-19 17:57] VITALS: BP 93/61
== END 2017-09-19 18:40 | disposition home or self-care (01) ==
LOC: EMR 17:05
DX: N39.0 Urinary tract infection, site not specified (principal); R31.9 Hematuria, unspecified
CPT/HCPCS: 81003; 81025; 87086; 87181; 99284

== ENCOUNTER 2017-11-01 11:20 | Emergency (ER) | payer OTHER ==
[~2017-11-01] VITALS: Ht 157.5 cm; Wt 52.2 kg
[~2017-11-01 11:20] MED LIST changes: +CEPHALEXIN500 MG ORAL
[2017-11-01] MEDS ORDERED: NKM (11:52)
[2017-11-01 12:00] VITALS: BP 109/46
[2017-11-01] MEDS ORDERED: DiphenhydrAMINE 50mg/ml Inj IVP ONE (12:00)
[2017-11-01] MEDS ORDERED: Metoclopramide 10mg/2ml Inj IVP ONE (12:00)
[2017-11-01] MEDS ORDERED: Morphine Sulfate 4mg/ml Inj IVP ONE (12:00)
[2017-11-01 12:55] VITALS: BP 107/63
[2017-11-01 13:24] LABS: ANION GAP 14 mmol/L (5-15); BLOOD UREA NITROGEN 16 mg/dL (7-18); CALCIUM 8.9 MG/DL (8.5-10.1); CARBON DIOXIDE 21 MMOL/L (21-32); CHLORIDE 107 MMOL/L (98-107); CREATININE 0.7 MG/DL (0.55-1.30); POTASSIUM 3.7 MMOL/L (3.5-5.1); SODIUM 142 MMOL/L (136-145)
[2017-11-01 13:26] LABS: HEMATOCRIT 36.7 % (37.0-47.0); HEMOGLOBIN 11.9 G/DL (12.0-16.0); MEAN CORPUSCULAR VOLUME 94 FL (80-99); PLATELET COUNT 247 K/UL (150-450); RED BLOOD COUNT 3.92 M/UL (4.20-5.40); RED CELL DISTRIBUTION WIDTH 12.5 % (11.6-14.8); WHITE BLOOD COUNT 13.2 K/UL (4.8-10.8)
[2017-11-01 13:29] LABS: ALANINE AMINOTRANSFERASE 26 U/L (12-78); ALBUMIN 4.3 G/DL (3.4-5.0); ALBUMIN/GLOBULIN RATIO 1.1 (1.0-2.7); ALKALINE PHOSPHATASE 52 U/L (46-116); ASPARTATE AMINO TRANSFERASE 25 U/L (15-37); BILIRUBIN,TOTAL 0.4 MG/DL (0.2-1.0)
[2017-11-01 13:56] LABS: APPEARANCE,URINE CLEAR; BILIRUBIN, URINE NEGATIVE (NEGATIVE); COLOR,URINE YELLOW; GLUCOSE, URINE (UA) NEGATIVE (NEGATIVE); KETONES,URINE 4+ (NEGATIVE); LEUKOCYTE ESTERASE ,URINE NEGATIVE (NEGATIVE); NITRITE,URINE NEGATIVE (NEGATIVE); PH,URINE 6 (4.5-8.0); PROTEIN,URINE 1+ (NEGATIVE); UROBILINOGEN,URINE NORMAL MG/DL (0.0-1.0)
[2017-11-01] MEDS ORDERED: oxyCODONE HCL/Acetaminophen 5/325mg ORAL ONE (14:45)
--- NOTE | 2017-11-01 14:47 | Emergency Room Report ---
History of Present Illness General Chief Complaint: Nausea, Vomiting, and Diarrhea Source: Patient Present Illness HPI Patient presents with severe abdominal pain and vomiting. She's had this before. She's been told she has endometriosis. She's not taking control at this time. She denies any fevers or chills. With the vomiting she feels short of breath now has chest pain and feels like she is suffocating. No diarrhea. The pain is 10/10, suprapubic, constant and crampy. Non-radiating. No vomit blood or melena. No vaginal d/c except for normal menses. Several visits in past for same. She had a negative transvag US in 2015 for similar pain. She doesn't believe she is . Denies dysuria. H/O malignant hyperthermia post anesthesia Allergies: Uncoded Allergies: ANESTHISEA (Allergy, Severe, 03/24/15) Patient History Past Medical History: see triage record Social History: Denies: smoking Social History Narrative with friend Now: No Reviewed Nursing Documentation: PMH: Agreed; PSxH: Agreed Nursing Documentation-PMH Past Medical History: No History, Except For Review of Systems All Other Systems: negative except mentioned in HPI Physical Exam Vital Signs Date Time Temp Pulse Resp B/P (MAP) Pulse Ox O2 Delivery O2 Flow Rate FiO2 11/01/17 11:32 97.8 74 22 109/46 97 Room Air 97.9 Sp02 EP Interpretation: reviewed, normal General Appearance: no apparent distress, GCS 15, mild distress Head: normocephalic Eyes: bilateral eye normal inspection, bilateral eye PERRL, bilateral eye EOMI ENT: moist mucus membranes Neck: supple Respiratory: lungs clear, normal breath sounds Cardiovascular #1: regular rate, rhythm Cardiovascular #2: 2+ radial (R) Gastrointestinal: normal inspection, no mass, non-distended, tenderness - suprapubic, but reacts to examiner with any touch (initially, then distracted), decreased bowel sounds Genitourinary: no CVA tenderness Musculoskeletal: back normal, gait/station normal, normal range of motion Neurologic: alert, oriented x3, grossly normal Psychiatric: depressed affect - with demanding attitude Skin: normal inspection, warm/dry Medical Decision Making Diagnostic Impression: Primary Impression: Abdominal pain Qualified Codes: R10.30 - Lower abdominal pain, unspecified Additional Impressions: Nausea & vomiting Qualified Codes: R11.2 - Nausea with vomiting, unspecified Dysmenorrhea ER Course Patient presents with severe suprapubic pain and vomiting. DDx: , ectopic, dysmenorrhea, UTI amongst others. Evaluation with labs. Treatment with IV hydration and analgesia. Based on history and exam, imaging studies not indicated at this time. Preg neg. UA neg. Labs unremarkable. Patient resting at this time and asleep. I was told she wants to go home. Then I was told that she still has pain and wants to get treated for the pain. Patient retreated with 1 more dose of Zofran and also Percocet by mouth Improved and tolerating PO. Decreased pain. Discussed need to follow up with [facility]. Patient is stable for outpatient observation and treatment. Her abdomen is soft and nonsurgical exam. Laboratory Tests Test 11/01/17 12:23 11/01/17 13:30 White Blood Count 13.2 K/UL (4.8-10.8) H Red Blood Count 3.92 M/UL (4.20-5.40) L Hemoglobin 11.9 G/DL (12.0-16.0) L Hematocrit 36.7 % (37.0-47.0) L Mean Corpuscular Volume 94 FL (80-99) Mean Corpuscular Hemoglobin 30.4 PG (27.0-31.0) Mean Corpuscular Hemoglobin Concent 32.4 G/DL (32.0-36.0) Red Cell Distribution Width 12.5 % (11.6-14.8) Platelet Count 247 K/UL (150-450) Mean Platelet Volume 7.4 FL (6.5-10.1) Neutrophils (%) (Auto) % (45.0-75.0) Lymphocytes (%) (Auto) % (20.0-45.0) Monocytes (%) (Auto) % (1.0-10.0) Eosinophils (%) (Auto) % (0.0-3.0) Basophils (%) (Auto) % (0.0-2.0) Differential Total Cells Counted 100 Neutrophils % (Manual) 90 % (45-75) H Lymphocytes % (Manual) 7 % (20-45) L Monocytes % (Manual) 2 % (1-10) Eosinophils % (Manual) 0 % (0-3) Basophils % (Manual) 1 % (0-2) Band Neutrophils 0 % (0-8) Platelet Estimate Adequate Platelet Morphology Normal Red Blood Cell Morphology Normal Sodium Level 142 MMOL/L (136-145) Potassium Level 3.7 MMOL/L (3.5-5.1) Chloride Level 107 MMOL/L (98-107) Carbon Dioxide Level 21 MMOL/L (21-32) Anion Gap 14 mmol/L (5-15) Blood Urea Nitrogen 16 mg/dL (7-18) Creatinine 0.7 MG/DL (0.55-1.30) Estimate Glomerular Filtration Rate > 60 mL/min (>60) Glucose Level 169 MG/DL (74-106) H Calcium Level 8.9 MG/DL (8.5-10.1) Total Bilirubin 0.4 MG/DL (0.2-1.0) Aspartate Amino Transferase (AST) 25 U/L (15-37) Alanine Aminotransferase (ALT) 26 U/L (12-78) Alkaline Phosphatase 52 U/L (46-116) Total Protein 8.3 G/DL (6.4-8.2) H Albumin 4.3 G/DL (3.4-5.0) Globulin 4.0 g/dL Albumin/Globulin Ratio 1.1 (1.0-2.7) Lipase 99 U/L (73-393) Urine Color Yellow Urine Appearance Clear Urine pH 6 (4.5-8.0) Urine Specific [place] 1.025 (1.005-1.035) Urine Protein 1+ (NEGATIVE) H Urine Glucose (UA) Negative (NEGATIVE) Urine Ketones 4+ (NEGATIVE) H Urine Occult Blood 4+ (NEGATIVE) H Urine Nitrite Negative (NEGATIVE) Urine Bilirubin Negative (NEGATIVE) Urine Urobilinogen Normal MG/DL (0.0-1.0) Urine Leukocyte Esterase Negative (NEGATIVE) Urine RBC 5-10 /HPF (0 - 2) H Urine WBC 0-2 /HPF (0 - 2) Urine Squamous Epithelial Cells Many /LPF (NONE/OCC) H Urine Bacteria Few /HPF (NONE) Urine Mucus Few /LPF (NONE/OCC) H Urine HCG, Qualitative Negative (NEGATIVE) Urine Opiates Screen Positive (NEGATIVE) H Urine Barbiturates Screen Negative (NEGATIVE) Phencyclidine (PCP) Screen Negative (NEGATIVE) Urine Amphetamines Screen Negative (NEGATIVE) Urine Benzodiazepines Screen Negative (NEGATIVE) Urine Cocaine Screen Negative (NEGATIVE) Urine Marijuana (THC) Screen Positive (NEGATIVE) H Last Vital Signs Date Time Temp Pulse Resp B/P (MAP) Pulse Ox O2 Delivery O2 Flow Rate FiO2 11/01/17 15:51 97.9 22 111/72 97 Room Air 208.2 11/01/17 11:32 74 Status: improved Disposition: HOME, SELF-CARE Condition: Improved Scripts Tramadol Hcl* (ULTRAM*) 50 Mg Tablet 50 MG ORAL Q6H PRN for For Pain, #8 TAB 0 Refills Prov: Delfino Antonio M.D. 11/01/17 Ondansetron Odt* (ZOFRAN ODT*) 4 Mg Tab.rapdis 4 MG ORAL EVERY 8 HOURS, #10 TAB 0 Refills Prov: Delfino Antonio M.D. 11/01/17 Referrals: [facility] (PCP) Delfino Antonio M.D. November 01, 2017 14:47
[2017-11-01] MEDS ORDERED: ONDANSETRON ODT4 MG ORAL (14:50)
[2017-11-01] MEDS ORDERED: TRAMADOL HCL50 MG ORAL (14:50)
[2017-11-01 15:51] VITALS: BP 111/72
== END 2017-11-01 15:30 | disposition home or self-care (01) ==
LOC: EMR 11:52
DX: N94.6 Dysmenorrhea, unspecified (principal); R10.30 Lower abdominal pain, unspecified; R11.2 Nausea with vomiting, unspecified; Z88.4 Allergy status to anesthetic agent
CPT/HCPCS: 36415; 80053; 80307; 81003; 81025; 83690; 85007; 85025; 96374; 96375; 99284; J1200; J2270; J2765; S0028

== ENCOUNTER 2017-11-29 11:02 | Emergency (ER) | payer OTHER ==
[~2017-11-29] VITALS: Ht 154.9 cm; Wt 52.2 kg
[~2017-11-29 11:02] MED LIST changes: +ONDANSETRON ODT4 MG ORAL; +TRAMADOL HCL50 MG ORAL
[2017-11-29] MEDS ORDERED: Ketorolac 30mg Inj IV ONE (11:45)
[2017-11-29 12:07] VITALS: BP 140/92
[2017-11-29 12:40] LABS: BASOPHILS % (AUTO) 0.6 % (0.0-2.0); EOSINOPHILS % (AUTO) 0.2 % (0.0-3.0); HEMOGLOBIN 12.9 G/DL (12.0-16.0); MEAN CORPUSCULAR VOLUME 94 FL (80-99); MONOCYTES % (AUTO) 4.7 % (1.0-10.0); NEUTROPHILS % (AUTO) 84.6 % (45.0-75.0); PLATELET COUNT 226 K/UL (150-450); RED BLOOD COUNT 4.27 M/UL (4.20-5.40); RED CELL DISTRIBUTION WIDTH 12.2 % (11.6-14.8); WHITE BLOOD COUNT 7.8 K/UL (4.8-10.8)
[2017-11-29 12:41] LABS: ANION GAP 8 mmol/L (5-15); BLOOD UREA NITROGEN 12 mg/dL (7-18); CALCIUM 8.1 MG/DL (8.5-10.1); CARBON DIOXIDE 26 MMOL/L (21-32); CHLORIDE 107 MMOL/L (98-107); CREATININE 0.7 MG/DL (0.55-1.30); POTASSIUM 3.9 MMOL/L (3.5-5.1); SODIUM 141 MMOL/L (136-145)
[2017-11-29 12:46] VITALS: BP 104/62
[2017-11-29 12:47] LABS: ALANINE AMINOTRANSFERASE 19 U/L (12-78); ALBUMIN 3.8 G/DL (3.4-5.0); ALKALINE PHOSPHATASE 41 U/L (46-116); ASPARTATE AMINO TRANSFERASE 19 U/L (15-37); BILIRUBIN,TOTAL 0.3 MG/DL (0.2-1.0)
[2017-11-29 12:54] LABS: APPEARANCE,URINE CLOUDY; BILIRUBIN, URINE NEGATIVE (NEGATIVE); GLUCOSE, URINE (UA) NEGATIVE (NEGATIVE); KETONES,URINE 1+ (NEGATIVE); LEUKOCYTE ESTERASE ,URINE 2+ (NEGATIVE); NITRITE,URINE POSITIVE (NEGATIVE); PH,URINE 5 (4.5-8.0); PROTEIN,URINE 3+ (NEGATIVE); UROBILINOGEN,URINE 1 MG/DL (0.0-1.0)
[2017-11-29 12:58] LABS: COLOR,URINE RED
[2017-11-29] MEDS ORDERED: Morphine Sulfate 4mg/ml Inj IVP ONE (13:00)
[2017-11-29 14:56] VITALS: BP 108/64
[2017-11-29 14:57] VITALS: BP 108/64
--- NOTE | 2017-11-29 15:03 | Emergency Room Report ---
History of Present Illness General Chief Complaint: Abdominal Pain Source: Patient Present Illness HPI This patient is well-known to [facility]. She has a history of severe dysmenorrhea at the onset of her period. She gets severe pain with nausea and vomiting. She has been told she may have endometriosis, however, she has not been officially diagnosed or seen an BENEFITS DIRECTOR for this. She has the same exact symptoms as usual. She states this is the exact dysmenorrhea syndrome she has every month. She does use marijuana but denies that she gets cyclic vomiting syndrome from this. She states that pain medications work for her. She has no new symptoms. She has no new complaints. Allergies: Uncoded Allergies: ANESTHISEA (Allergy, Severe, 03/24/15) Patient History Past Medical History: see triage record, other - Severe dysmenorrhea Social History: Reports: drug use Last Menstrual Period: 10/29/2017 Reviewed Nursing Documentation: PMH: Agreed; PSxH: Agreed Review of Systems All Other Systems: negative except mentioned in HPI Physical Exam Vital Signs Date Time Temp Pulse Resp B/P (MAP) Pulse Ox O2 Delivery O2 Flow Rate FiO2 11/29/17 11:23 97.5 64 18 140/92 95 Room Air 97.5 Sp02 EP Interpretation: reviewed, normal General Appearance: no apparent distress, alert, GCS 15, non-toxic Head: normocephalic, atraumatic Eyes: bilateral eye normal inspection, bilateral eye PERRL ENT: hearing grossly normal, normal pharynx, no angioedema, normal voice Neck: full range of motion, supple/symm/no masses Respiratory: chest non-tender, lungs clear, normal breath sounds, no respiratory distress, no retraction, no accessory muscle use, speaking full sentences Cardiovascular #1: regular rate, rhythm, no edema Gastrointestinal: normal bowel sounds, soft, non-distended, no guarding, no rebound, tenderness - TTP suprapubic Rectal: deferred Musculoskeletal: back normal, gait/station normal, normal range of motion, non- tender Neurologic: alert, oriented x3, responsive, motor strength/tone normal, sensory intact, speech normal Psychiatric: judgement/insight normal, memory normal, mood/affect normal, no suicidal/homicidal ideation Skin: normal color, no rash, warm/dry, well hydrated Medical Decision Making Diagnostic Impression: Primary Impression: Dysmenorrhea Additional Impression: UTI (urinary tract infection) ER Course This patient presents with her typical syndrome of dysmenorrhea. She denies that there are any new symptoms. The patient's workup and physical exam are reassuring. The patient's urinalysis shows too numerous to count white blood cells and 2-4 red blood cells, however, I suspect this is a lab error given the patient is on her menses and the urine was red in color and contaminated from her menses. However, I will give her a course of antibiotics as a precaution. She was given antinausea medications and pain medications and had resolution of her symptoms. She is discharged in a stable condition. Laboratory Tests Test 11/29/17 12:00 11/29/17 12:40 White Blood Count 7.8 K/UL (4.8-10.8) Red Blood Count 4.27 M/UL (4.20-5.40) Hemoglobin 12.9 G/DL (12.0-16.0) Hematocrit 40.0 % (37.0-47.0) Mean Corpuscular Volume 94 FL (80-99) Mean Corpuscular Hemoglobin 30.2 PG (27.0-31.0) Mean Corpuscular Hemoglobin Concent 32.2 G/DL (32.0-36.0) Red Cell Distribution Width 12.2 % (11.6-14.8) Platelet Count 226 K/UL (150-450) Mean Platelet Volume 6.9 FL (6.5-10.1) Neutrophils (%) (Auto) 84.6 % (45.0-75.0) H Lymphocytes (%) (Auto) 10.0 % (20.0-45.0) L Monocytes (%) (Auto) 4.7 % (1.0-10.0) Eosinophils (%) (Auto) 0.2 % (0.0-3.0) Basophils (%) (Auto) 0.6 % (0.0-2.0) Sodium Level 141 MMOL/L (136-145) Potassium Level 3.9 MMOL/L (3.5-5.1) Chloride Level 107 MMOL/L (98-107) Carbon Dioxide Level 26 MMOL/L (21-32) Anion Gap 8 mmol/L (5-15) Blood Urea Nitrogen 12 mg/dL (7-18) Creatinine 0.7 MG/DL (0.55-1.30) Estimate Glomerular Filtration Rate > 60 mL/min (>60) Glucose Level 121 MG/DL (74-106) H Calcium Level 8.1 MG/DL (8.5-10.1) L Total Bilirubin 0.3 MG/DL (0.2-1.0) Aspartate Amino Transferase (AST) 19 U/L (15-37) Alanine Aminotransferase (ALT) 19 U/L (12-78) Alkaline Phosphatase 41 U/L (46-116) L Total Protein 7.5 G/DL (6.4-8.2) Albumin 3.8 G/DL (3.4-5.0) Globulin 3.7 g/dL Albumin/Globulin Ratio 1.0 (1.0-2.7) Lipase 92 U/L (73-393) Urine Color Red Urine Appearance Cloudy Urine pH 5 (4.5-8.0) Urine Specific [place] 1.025 (1.005-1.035) Urine Protein 3+ (NEGATIVE) H Urine Glucose (UA) Negative (NEGATIVE) Urine Ketones 1+ (NEGATIVE) H Urine Occult Blood 5+ (NEGATIVE) H Urine Nitrite Positive (NEGATIVE) H Urine Bilirubin Negative (NEGATIVE) Urine Urobilinogen 1 MG/DL (0.0-1.0) H Urine Leukocyte Esterase 2+ (NEGATIVE) H Urine RBC 2-4 /HPF (0 - 2) H Urine WBC Tntc /HPF (0 - 2) H Urine Squamous Epithelial Cells Occasional /LPF Urine Bacteria Few /HPF (NONE) Urine HCG, Qualitative Negative (NEGATIVE) Last Vital Signs Date Time Temp Pulse Resp B/P (MAP) Pulse Ox O2 Delivery O2 Flow Rate FiO2 11/29/17 13:36 98.7 11/29/17 12:46 72 17 104/62 98 Room Air Status: improved Disposition: HOME, SELF-CARE Condition: Improved Referrals: [facility],REFERRING (PCP) Emily Nath DO Nov 29, 2017 15:03
[2017-11-29] MEDS ORDERED: NITROFURANTOIN100 M2 ORAL (15:04)
== END 2017-11-29 15:22 | disposition home or self-care (01) ==
LOC: EMR 11:42
DX: N94.6 Dysmenorrhea, unspecified (principal); N39.0 Urinary tract infection, site not specified
CPT/HCPCS: 36415; 80053; 81003; 81025; 83690; 85025; 87086; 87181; 96374; 96375; 99283; J1885; J2270; J2405

== ENCOUNTER 2018-01-22 20:36 | Emergency (ER) | payer OTHER ==
[~2018-01-22] VITALS: Ht 154.9 cm; Wt 52.2 kg
[2018-01-22 21:11] LABS: APPEARANCE,URINE CLEAR; BILIRUBIN, URINE NEGATIVE (NEGATIVE); COLOR,URINE AMBER; GLUCOSE, URINE (UA) NEGATIVE (NEGATIVE); KETONES,URINE NEGATIVE (NEGATIVE); LEUKOCYTE ESTERASE ,URINE 1+ (NEGATIVE); NITRITE,URINE NEGATIVE (NEGATIVE); PH,URINE 7 (4.5-8.0); PROTEIN,URINE NEGATIVE (NEGATIVE); UROBILINOGEN,URINE NORMAL MG/DL (0.0-1.0)
[2018-01-22 21:14] LABS: BASOPHILS % (AUTO) 0.9 % (0.0-2.0); EOSINOPHILS % (AUTO) 0.4 % (0.0-3.0); HEMATOCRIT 38.8 % (37.0-47.0); HEMOGLOBIN 13.2 G/DL (12.0-16.0); LYMPHOCYTES % (AUTO) 19.5 % (20.0-45.0); MEAN CORPUSCULAR VOLUME 89 FL (80-99); MONOCYTES % (AUTO) 7.8 % (1.0-10.0); NEUTROPHILS % (AUTO) 71.4 % (45.0-75.0); PLATELET COUNT 218 K/UL (150-450); RED BLOOD COUNT 4.36 M/UL (4.20-5.40); RED CELL DISTRIBUTION WIDTH 12.2 % (11.6-14.8); WHITE BLOOD COUNT 7.9 K/UL (4.8-10.8)
[2018-01-22] MEDS ORDERED: Morphine Sulfate 4mg/ml Inj (IV USE ONLY) IVP ONE (21:15)
[2018-01-22] MEDS ORDERED: Ketorolac 30mg Inj IV ONE (21:15)
[2018-01-22 21:35] LABS: ANION GAP 9 mmol/L (5-15); BLOOD UREA NITROGEN 15 mg/dL (7-18); CARBON DIOXIDE 29 MMOL/L (21-32); CHLORIDE 105 MMOL/L (98-107); CREATININE 0.8 MG/DL (0.55-1.30); POTASSIUM 3.5 MMOL/L (3.5-5.1); SODIUM 143 MMOL/L (136-145)
[2018-01-22 21:39] LABS: ALANINE AMINOTRANSFERASE 19 U/L (12-78); ALBUMIN 4.1 G/DL (3.4-5.0); ALBUMIN/GLOBULIN RATIO 1.1 (1.0-2.7); ALKALINE PHOSPHATASE 52 U/L (46-116); ASPARTATE AMINO TRANSFERASE 19 U/L (15-37); BILIRUBIN,TOTAL 0.3 MG/DL (0.2-1.0)
[2018-01-22] MEDS ORDERED: ACETAMINOPHEN-1 EAC1 ORAL (21:58)
[2018-01-22] MEDS ORDERED: ONDANSETRON ODT4 MG BC (21:58)
[2018-01-22] MEDS ORDERED: CEPHALEXIN500 MG ORAL (21:58)
[2018-01-22 22:08] VITALS: BP 123/61
--- NOTE | 2018-01-22 22:31 | Emergency Room Report ---
History of Present Illness General Chief Complaint: Abdominal Pain Source: Patient Present Illness HPI 22-year-old female presents ED complaining of abdominal pain and nausea and vomiting 1 day. Pain is suprapubic, sharp, 7 out of 10, nonradiating. Multiple episodes of vomiting. States she is currently on her period. States that she gets this pain often with her periods. Denies chest pain or shortness of breath. Denies fevers or chills. No other aggravating or relieving factors. Denies any other associated symptoms Allergies: Uncoded Allergies: ANESTHISEA (Allergy, Severe, 03/24/15) Patient History Past Medical History: none Past Surgical History: none Pertinent Family History: none Social History: Reports: drug use; Denies: smoking, alcohol use Last Menstrual Period: December Now: No Immunizations: UTD Reviewed Nursing Documentation: PMH: Agreed; PSxH: Agreed Review of Systems All Other Systems: negative except mentioned in HPI Physical Exam Vital Signs Date Time Temp Pulse Resp B/P (MAP) Pulse Ox O2 Delivery O2 Flow Rate FiO2 01/22/18 20:40 98.2 61 18 123/61 97 Room Air 98.2 Sp02 EP Interpretation: reviewed, normal General Appearance: no apparent distress, alert, GCS 15, non-toxic Head: normocephalic, atraumatic Eyes: bilateral eye normal inspection, bilateral eye PERRL ENT: hearing grossly normal, normal pharynx, no angioedema, normal voice Neck: full range of motion, supple/symm/no masses Respiratory: chest non-tender, lungs clear, normal breath sounds, speaking full sentences Cardiovascular #1: regular rate, rhythm, no edema Cardiovascular #2: 2+ carotid (R), 2+ carotid (L), 2+ radial (R), 2+ radial (L) , 2+ dorsalis pedis (R), 2+ dorsalis pedis (L) Gastrointestinal: normal bowel sounds, soft, non-distended, no guarding, no rebound, tenderness - suprapubic Rectal: deferred Genitourinary: normal inspection, no CVA tenderness Musculoskeletal: back normal, gait/station normal, normal range of motion, non- tender Neurologic: alert, oriented x3, responsive, motor strength/tone normal, sensory intact, speech normal Psychiatric: judgement/insight normal, memory normal, mood/affect normal, no suicidal/homicidal ideation Reflexes: 3+ bicep (R), 3+ bicep (L), 3+ tricep (R), 3+ tricep (L), 3+ knee (R) , 3+ knee (L) Skin: normal color, no rash, warm/dry, well hydrated Lymphatic: no adenopathy Medical Decision Making Diagnostic Impression: Primary Impression: Dysmenorrhea Additional Impression: UTI (urinary tract infection) Qualified Codes: N39.0 - Urinary tract infection, site not specified ER Course Hospital Course 22-year-old F presents to ED with bdominal pain with vomiting differential diagnosis: gastritis, SBO, cholecystits, gastroenteritis Clinical course Patient placed on stretcher. On counter help. After initial history and physical I ordered labs, IV fluids, Zofran and toradol, morphien Labs - no leukocytosis, electrolytes ok, LFTs normal, UA + bacteria Upon reassessment, patient states she feels better. Tolerating oral intake She states she has prior diagnosis of endometriosis. I reviewed EMR. Patient has been here several times for similar presentation however I see no documentation of endometriosis. Patient had ultrasound in 2015 which was unremarkable Discussed findings with the patient. Patient states that she does not have an FLUTE TEACHER. I will provide her with referrals. Patient needs to set up a PMD with her insurance I feel this is a highly complex case requiring extensive working including EKG/ Rhythm strip, Xray/CT/US, Blood/urine lab work, repeat exams while in ED, and administration of strong opiates/narcotics for pain control, admission to hospital or close patient follow up. Diagnosis - dysmenorrhea, UTI Stable and discharged to home with prescriptions for zofran, tylenol #3, Keflex. Followup with OBGYN. Return to ED if symptoms recur or worsen Labs Test 01/22/18 20:50 White Blood Count 7.9 K/UL (4.8-10.8) Red Blood Count 4.36 M/UL (4.20-5.40) Hemoglobin 13.2 G/DL (12.0-16.0) Hematocrit 38.8 % (37.0-47.0) Mean Corpuscular Volume 89 FL (80-99) Mean Corpuscular Hemoglobin 30.2 PG (27.0-31.0) Mean Corpuscular Hemoglobin Concent 34.0 G/DL (32.0-36.0) Red Cell Distribution Width 12.2 % (11.6-14.8) Platelet Count 218 K/UL (150-450) Mean Platelet Volume 6.7 FL (6.5-10.1) Neutrophils (%) (Auto) 71.4 % (45.0-75.0) Lymphocytes (%) (Auto) 19.5 % (20.0-45.0) Monocytes (%) (Auto) 7.8 % (1.0-10.0) Eosinophils (%) (Auto) 0.4 % (0.0-3.0) Basophils (%) (Auto) 0.9 % (0.0-2.0) Urine Color Monica Urine Appearance Clear Urine pH 7 (4.5-8.0) Urine Specific [place] 1.010 (1.005-1.035) Urine Protein Negative (NEGATIVE) Urine Glucose (UA) Negative (NEGATIVE) Urine Ketones Negative (NEGATIVE) Urine Occult Blood 3+ (NEGATIVE) Urine Nitrite Negative (NEGATIVE) Urine Bilirubin Negative (NEGATIVE) Urine Ictotest Negative Urine Urobilinogen Normal MG/DL (0.0-1.0) Urine Leukocyte Esterase 1+ (NEGATIVE) Urine RBC 15-20 /HPF (0 - 2) Urine WBC 5-10 /HPF (0 - 2) Urine Squamous Epithelial Cells Moderate /LPF (NONE/OCC) Urine Amorphous Sediment Moderate /LPF (NONE) Urine Bacteria Moderate /HPF (NONE) Urine HCG, Qualitative Negative (NEGATIVE) Sodium Level 143 MMOL/L (136-145) Potassium Level 3.5 MMOL/L (3.5-5.1) Chloride Level 105 MMOL/L (98-107) Carbon Dioxide Level 29 MMOL/L (21-32) Anion Gap 9 mmol/L (5-15) Blood Urea Nitrogen 15 mg/dL (7-18) Creatinine 0.8 MG/DL (0.55-1.30) Estimat Glomerular Filtration Rate > 60 mL/min (>60) Glucose Level 97 MG/DL (74-106) Calcium Level 9.0 MG/DL (8.5-10.1) Total Bilirubin 0.3 MG/DL (0.2-1.0) Aspartate Amino Transf (AST/SGOT) 19 U/L (15-37) Alanine Aminotransferase (ALT/SGPT) 19 U/L (12-78) Alkaline Phosphatase 52 U/L (46-116) Total Protein 8.0 G/DL (6.4-8.2) Albumin 4.1 G/DL (3.4-5.0) Globulin 3.9 g/dL Albumin/Globulin Ratio 1.1 (1.0-2.7) Lipase 138 U/L (73-393) Last Vital Signs Date Time Temp Pulse Resp B/P (MAP) Pulse Ox O2 Delivery O2 Flow Rate FiO2 01/22/18 22:08 98.2 18 123/61 97 Room Air 208.8 01/22/18 20:40 61 Status: improved Disposition: HOME, SELF-CARE Condition: Stable Scripts Cephalexin* (KEFLEX*) 500 Mg Capsule 500 MG ORAL EVERY 6 HOURS for 7 Days, CAP Prov: Hal Golden MD 01/22/18 Ondansetron Odt* (ZOFRAN ODT*) 4 Mg Tab.rapdis 4 MG BC EVERY 6 HOURS PRN for Nausea & Vomiting, #20 TAB 0 Refills Prov: Hal Golden MD 01/22/18 Acetaminophen With Codeine (T#3) (TYLENOL #3 TAB*) Y Tab 1 TAB ORAL Q8H PRN for For Pain, #20 TAB Prov: Hal Golden MD 01/22/18 Referrals: [facility],REFERRING (PCP) Agueda Coronado M.D., ZOYA Patient Instructions: Dysmenorrhea, [id number] Hal Golden MD Jan 22, 2018 22:31
== END 2018-01-22 22:13 | disposition home or self-care (01) ==
LOC: EMR 20:56
DX: N94.6 Dysmenorrhea, unspecified (principal); N39.0 Urinary tract infection, site not specified
CPT/HCPCS: 36415; 80053; 81003; 81025; 83690; 85025; 87086; 96361; 96374; 96375; 99284; J1885; J2270; J2405

== ENCOUNTER 2018-04-09 02:26 | Emergency (ER) | payer OTHER ==
[~2018-04-09] VITALS: Ht 154.9 cm; Wt 52.2 kg
[~2018-04-09 02:26] MED LIST changes: +ONDANSETRON ODT4 MG BC
[2018-04-09 03:00] VITALS: BP 88/53
[2018-04-09 03:27] LABS: BILIRUBIN, URINE NEGATIVE (NEGATIVE); COLOR,URINE PALE YELLOW; GLUCOSE, URINE (UA) NEGATIVE (NEGATIVE); KETONES,URINE NEGATIVE (NEGATIVE); LEUKOCYTE ESTERASE ,URINE 3+ (NEGATIVE); NITRITE,URINE NEGATIVE (NEGATIVE); PH,URINE 7 (4.5-8.0); PROTEIN,URINE 1+ (NEGATIVE); UROBILINOGEN,URINE NORMAL MG/DL (0.0-1.0)
[2018-04-09 03:36] LABS: APPEARANCE,URINE CLOUDY
--- NOTE | 2018-04-09 04:03 | Emergency Room Report ---
History of Present Illness General Chief Complaint: Female Urogenital Problems Source: Patient Present Illness HPI Patient with several days of dysuria and frequency. No fevers. Has had UTIs in past and feels this is what she has. No fevers, back pain, NVD, rashes. In past seen multiple times for heavy and painful periods. No URI sy, headache, rashes, joint pain, polies, change in bowels, anxiety/ depression. Allergies: Uncoded Allergies: ANESTHISEA (Allergy, Severe, 03/24/15) Patient History Past Medical History: see triage record Social History: Reports: smoking Social History Narrative from home Last Menstrual Period: 03/18/18 Reviewed Nursing Documentation: PMH: Agreed; PSxH: Agreed Review of Systems All Other Systems: negative except mentioned in HPI Physical Exam Vital Signs Date Time Temp Pulse Resp B/P (MAP) Pulse Ox O2 Delivery O2 Flow Rate FiO2 04/09/18 02:48 98.9 62 16 88/53 96 Room Air 99.0 Sp02 EP Interpretation: reviewed, normal General Appearance: well appearing, no apparent distress Head: normocephalic, atraumatic Eyes: bilateral eye normal inspection, bilateral eye PERRL ENT: hearing grossly normal, normal voice, moist mucus membranes Neck: full range of motion, supple Respiratory: no respiratory distress, speaking full sentences Gastrointestinal: normal inspection, scaphoid Genitourinary: no CVA tenderness Musculoskeletal: back normal, digits/nails normal, gait/station normal, normal range of motion Neurologic: alert, normal gait, grossly normal Psychiatric: mood/affect normal Skin: no rash Medical Decision Making Diagnostic Impression: Primary Impression: UTI (urinary tract infection) Qualified Codes: N30.00 - Acute cystitis without hematuria ER Course Patient with dysuria and suprapubic pain which she believes is UTI. DDx: UTI, , ovarian cyst. Pyelo excluded clinically. UA indicated. Patient declines pain medicine. Given pyridium. UA with pyuria. Antibiotics ordered. Improved with treatment. Patient stable for outpatient observation and treatment. Laboratory Tests Test 04/09/18 02:55 Urine Color Pale yellow Urine Appearance Cloudy Urine pH 7 (4.5-8.0) Urine Specific [place] 1.010 (1.005-1.035) Urine Protein 1+ (NEGATIVE) H Urine Glucose (UA) Negative (NEGATIVE) Urine Ketones Negative (NEGATIVE) Urine Blood 2+ (NEGATIVE) H Urine Nitrite Negative (NEGATIVE) Urine Bilirubin Negative (NEGATIVE) Urine Urobilinogen Normal MG/DL (0.0-1.0) Urine Leukocyte Esterase 3+ (NEGATIVE) H Urine RBC 5-10 /HPF (0 - 2) H Urine WBC 40-60 /HPF (0 - 2) H Urine Squamous Epithelial Cells Many /LPF (NONE/OCC) H Urine Bacteria Moderate /HPF (NONE) H Urine Trichomonas Many /HPF (NONE) H Urine HCG, Qualitative Negative (NEGATIVE) Last Vital Signs Date Time Temp Pulse Resp B/P (MAP) Pulse Ox O2 Delivery O2 Flow Rate FiO2 04/09/18 04:13 98.5 68 16 92/55 96 Room Air 98.5 Status: improved Disposition: HOME, SELF-CARE Condition: Improved Scripts Phenazopyridine Hcl* (PYRIDIUM*) 100 Mg Tablet 100 MG ORAL THREE TIMES A DAY, #9 TAB Prov: Delfino Antonio M.D. 04/09/18 Nitrofurantoin Monohyd/M-Cryst* (MACROBID 100 MG*) 100 Mg Capsule 100 MG ORAL EVERY 12 HOURS, #14 CAP Prov: Delfino Antonio M.D. 04/09/18 Referrals: [facility],REFERR[facility] (PCP) Delfino Antonio M.D. Apr 09, 2018 04:03
[2018-04-09] MEDS ORDERED: PHENAZOPYRIDIN100 MG ORAL (04:06)
[2018-04-09] MEDS ORDERED: NITROFURANTOIN100 M2 ORAL (04:06)
[2018-04-09 04:12] VITALS: BP 92/55
[2018-04-09 04:13] VITALS: BP 92/55
== END 2018-04-09 04:15 | disposition home or self-care (01) ==
LOC: EMR 03:11
DX: N39.0 Urinary tract infection, site not specified (principal); R30.0 Dysuria; Z72.0 Tobacco use
CPT/HCPCS: 81003; 81025; 87086; 99283

== ENCOUNTER 2018-04-24 22:17 | Emergency (ER) | payer OTHER ==
[~2018-04-24] VITALS: Ht 160 cm; Wt 56.7 kg
[~2018-04-24 22:17] MED LIST changes: +PHENAZOPYRIDIN100 MG ORAL
[2018-04-24] MEDS ORDERED: BENADRYL25 MG ORAL ×2 (22:26→23:32)
[2018-04-24 22:31] VITALS: BP 126/73
[2018-04-24] MEDS ORDERED: Solu-MEDROL 125mg Inj IVP ONE (22:45)
[2018-04-24] MEDS ORDERED: DiphenhydrAMINE 50mg/ml Inj IVP ONE (22:45)
[2018-04-24 23:29] VITALS: BP 123/75
[2018-04-24 23:30] VITALS: BP 123/75
[2018-04-24] MEDS ORDERED: PREDNISONE20 MG ORAL (23:32)
--- NOTE | 2018-04-24 23:32 | Emergency Room Report ---
History of Present Illness General Chief Complaint: Allergic Reaction Source: Patient Present Illness HPI Is a 22-year-old female with no past mental history. She presents with chief complaint of allergic reaction. On Halloween night she had makeup on her body that supposed to simulate blood. 2 hours after which she started itching rash broke on her body. She washed it off but still has having problem with itching. Ongoing for about for 5 days now. Better with Benadryl. Denies any respiratory issue. Worse with scratching. Allergies: Uncoded Allergies: ANETHESIA (Allergy, Severe, 04/24/18) Patient History Past Medical History: see triage record, old chart reviewed Past Surgical History: none Pertinent Family History: none Social History: Denies: smoking Last Menstrual Period: apr 16 Now: No Immunizations: other Reviewed Nursing Documentation: PMH: Agreed; PSxH: Agreed Nursing Documentation-PMH Hx Neurological Problems: Yes - malignant hypothermia Review of Systems Eye: Denies: eye pain, blurred vision ENT: Denies: ear pain, nose congestion, throat swelling Respiratory: Denies: cough, shortness of breath Cardiovascular: Denies: chest pain, palpitations Gastrointestinal: Denies: abdominal pain, diarrhea, nausea, vomiting Musculoskeletal: Denies: back pain, joint pain Skin: Denies: rash Neurological: Denies: headache, numbness Endocrine: Denies: increased thirst, increased urine Hematologic/Lymphatic: Denies: easy bruising All Other Systems: negative except mentioned in HPI Physical Exam Vital Signs Date Time Temp Pulse Resp B/P (MAP) Pulse Ox O2 Delivery O2 Flow Rate FiO2 04/24/18 22:18 97.9 74 16 101/52 97 Room Air 04/24/18 22:31 99 vitals normal Sp02 EP Interpretation: reviewed, normal General Appearance: well appearing, no apparent distress, alert Head: normocephalic, atraumatic Eyes: bilateral eye PERRL, bilateral eye EOMI ENT: hearing grossly normal, normal pharynx Neck: full range of motion, supple, no meningismus Respiratory: chest non-tender, lungs clear, normal breath sounds Cardiovascular #1: regular rate, rhythm, no murmur Gastrointestinal: normal bowel sounds, non tender, no mass, no organomegaly, no bruit, non-distended Musculoskeletal: back normal, gait/station normal, normal range of motion Neurologic: alert, oriented x3 Psychiatric: mood/affect normal Skin: warm/dry, rash - Hyperema and urticara Medical Decision Making Diagnostic Impression: Primary Impression: Allergic reaction Qualified Codes: T78.40XA - Allergy, unspecified, initial encounter ER Course Patient with allergic reaction. Better after Benadryl. Steroids given here. We'll discharge home. No evidence of anaphylaxis. Last Vital Signs Date Time Temp Pulse Resp B/P (MAP) Pulse Ox O2 Delivery O2 Flow Rate FiO2 04/24/18 22:31 98.3 72 18 126/73 99 04/24/18 22:31 Room Air 99 Status: improved Disposition: HOME, SELF-CARE Condition: Stable Scripts Prednisone* (PREDNISONE*) 20 Mg Tablet 40 MG ORAL DAILY, #6 TAB Prov: Marco Mitchell MD 04/24/18 Diphenhydramine Hcl* (BENADRYL*) 25 Mg Capsule 50 MG ORAL Q6H PRN for Itching, #30 CAP Prov: Marco Mitchell MD 04/24/18 Referrals: [facility],REFERR[facility] (PCP) Patient Instructions: Allergies Additional Instructions: Follow-up with your doctor in 7 days. Return if symptom worsen. Marco Mitchell MD Apr 24, 2018 23:32
== END 2018-04-24 23:39 | disposition home or self-care (01) ==
LOC: EMR 22:35
DX: T78.49XA Other allergy, initial encounter (principal); X58.XXXA Exposure to other specified factors, initial encounter
CPT/HCPCS: 96374; 96375; 99284; J1200; J2930

== ENCOUNTER 2018-08-06 20:44 | Emergency (ER) | payer OTHER ==
[~2018-08-06] VITALS: Ht 160 cm; Wt 52.2 kg
[2018-08-06] MEDS ORDERED: NKM (21:17)
--- NOTE | 2018-08-06 21:25 | NUR ---
ED Nurse Note: Patient walk in c/o burning sensation with urination since this morning, denies other sx, vss, ambulatory w/ steady gait, urine specimen obtained and sent.
[2018-08-06 21:47] LABS: APPEARANCE,URINE CLOUDY; BILIRUBIN, URINE NEGATIVE (NEGATIVE); COLOR,URINE AMBER; GLUCOSE, URINE (UA) NEGATIVE (NEGATIVE); KETONES,URINE NEGATIVE (NEGATIVE); LEUKOCYTE ESTERASE ,URINE 3+ (NEGATIVE); NITRITE,URINE POSITIVE (NEGATIVE); PH,URINE 7 (4.5-8.0); PROTEIN,URINE 2+ (NEGATIVE); UROBILINOGEN,URINE NORMAL MG/DL (0.0-1.0)
--- NOTE | 2018-08-06 22:08 | Emergency Room Report ---
History of Present Illness General Chief Complaint: Female Urogenital Problems Source: Patient Present Illness HPI Patient presents with complaints of burning with urination Lower suprapubic discomfort ongoing for the past several days Denies any fevers or chills denies any flank pain denies any chest pain or shortness of breath Denies any recent sexual activity Patient reports that she has been followed for bladder infections in the past including ultrasound Allergies: Uncoded Allergies: ANETHESIA (Allergy, Severe, 04/24/18) Patient History Past Medical History: see triage record Pertinent Family History: none Last Menstrual Period: 07/19/2018 Now: No Reviewed Nursing Documentation: PMH: Agreed; PSxH: Agreed Nursing Documentation-PMH Past Medical History: No History, Except For Hx Neurological Problems: Yes - malignant hypothermia Review of Systems All Other Systems: negative except mentioned in HPI Physical Exam Vital Signs Date Time Temp Pulse Resp B/P (MAP) Pulse Ox O2 Delivery O2 Flow Rate FiO2 08/06/18 21:12 98.1 68 16 94/47 98 Room Air Sp02 EP Interpretation: reviewed, normal General Appearance: well appearing, no apparent distress Head: normocephalic, atraumatic Eyes: bilateral eye PERRL, bilateral eye EOMI ENT: hearing grossly normal, normal pharynx, TMs + canals normal, uvula midline Neck: full range of motion, supple, no meningismus, no bony tend Respiratory: lungs clear, normal breath sounds, no rhonchi, no respiratory distress, no retraction, no accessory muscle use Cardiovascular #1: normal peripheral pulses, regular rate, rhythm, no edema, no gallop, no JVD, no murmur Gastrointestinal: normal bowel sounds, non tender, soft, no mass, no organomegaly, non-distended, no guarding, no hernia, no pulsatile mass, no rebound Genitourinary: no CVA tenderness Musculoskeletal: normal inspection Neurologic: oriented x3, responsive, pit boss III-XII nml as tested, motor strength/ tone normal, sensory intact Psychiatric: mood/affect normal Skin: normal color, no rash, warm/dry, palpation normal Lymphatic: normal inspection, no adenopathy Medical Decision Making Diagnostic Impression: Primary Impression: UTI (urinary tract infection) ER Course Multiple differentials considered patient otherwise does not show signs of any abdominal discomfort Given the complaints urine sample was tested which does show significant bacteria Other differentials such as PID and vaginitis need to be considered patient is otherwise stable for close outpatient follow-up Labs Test 08/06/18 21:32 Urine Color Monica Urine Appearance Cloudy Urine pH 7 (4.5-8.0) Urine Specific [place] 1.015 (1.005-1.035) Urine Protein 2+ (NEGATIVE) Urine Glucose (UA) Negative (NEGATIVE) Urine Ketones Negative (NEGATIVE) Urine Blood 4+ (NEGATIVE) Urine Nitrite Positive (NEGATIVE) Urine Bilirubin Negative (NEGATIVE) Urine Ictotest Negative (NEGATIVE) Urine Urobilinogen Normal MG/DL (0.0-1.0) Urine Leukocyte Esterase 3+ (NEGATIVE) Urine RBC 10-15 /HPF (0 - 2) Urine WBC Tntc /HPF (0 - 2) Urine Squamous Epithelial Cells Many /LPF (NONE/OCC) Urine Bacteria Many /HPF (NONE) Urine HCG, Qualitative Negative (NEGATIVE) Last Vital Signs Date Time Temp Pulse Resp B/P (MAP) Pulse Ox O2 Delivery O2 Flow Rate FiO2 08/06/18 21:12 98.1 68 16 94/47 98 Room Air Status: improved Disposition: HOME, SELF-CARE Condition: Improved Scripts Phenazopyridine Hcl* (PYRIDIUM*) 100 Mg Tablet 100 MG ORAL THREE TIMES A DAY for 3 Days, TAB Prov: Gissell Perry DO 08/06/18 Cephalexin* (KEFLEX*) 500 Mg Capsule 500 MG ORAL EVERY 6 HOURS for 7 Days, CAP Prov: Gissell Perry DO 08/06/18 Additional Instructions: Patient is provided with the discharge instructions notified to follow up with primary doctor in the next 2-3 days otherwise return to the er with any worsening symptoms. Please note that this report is being documented using [employer] technology. This can lead to erroneous entry secondary to incorrect interpretation by the dictating instrument. Gissell Perry DO Aug 06, 2018 22:08
[2018-08-06] MEDS ORDERED: Cephalexin 500mg cap ORAL ONE (22:15)
[2018-08-06] MEDS ORDERED: CEPHALEXIN500 MG ORAL (22:19)
[2018-08-06] MEDS ORDERED: PHENAZOPYRIDIN100 MG ORAL (22:19)
[2018-08-06 22:22] VITALS: BP 110/58
--- NOTE | 2018-08-06 22:22 | NUR ---
ED Nurse Note: PT is cleared to be d/c per ER provider, pt discharge/aftercare instruction with prescription provided, pt education done via discussion and hand out, pt advised to follow up with pcp or return to ED if s/s worsen or new sx develop, pt wrist band removed, pt verbalized understanding and agrees with plan, all belongings left with pt, pt ambulatory w/ steady gait, vss, resp even and unlabored RA.
== END 2018-08-06 22:25 | disposition home or self-care (01) ==
LOC: EMR 21:00
DX: N39.0 Urinary tract infection, site not specified (principal)
CPT/HCPCS: 81003; 81025; 87086; 87181; 99283

== ENCOUNTER 2018-08-19 02:06 | Emergency (ER) | payer OTHER ==
[~2018-08-19] VITALS: Ht 160 cm; Wt 52.2 kg
[2018-08-19] MEDS ORDERED: NKM (02:17)
--- NOTE | 2018-08-19 02:39 | NUR ---
ED Nurse Note: Patient presents with abdominal pain x 1 day with vomitting and nausea after eating shrimp. 03/30 pain level
[2018-08-19 02:40] VITALS: BP 134/70
[2018-08-19] MEDS ORDERED: Ketorolac 30mg Inj IV ONE (02:45)
[2018-08-19 03:06] LABS: EOSINOPHILS % (AUTO) 0.4 % (0.0-3.0); HEMATOCRIT 38.1 % (37.0-47.0); HEMOGLOBIN 12.8 G/DL (12.0-16.0); LYMPHOCYTES % (AUTO) 26.3 % (20.0-45.0); MEAN CORPUSCULAR VOLUME 94 FL (80-99); MONOCYTES % (AUTO) 7.4 % (1.0-10.0); NEUTROPHILS % (AUTO) 64.9 % (45.0-75.0); PLATELET COUNT 209 K/UL (150-450); RED BLOOD COUNT 4.07 M/UL (4.20-5.40); RED CELL DISTRIBUTION WIDTH 11.5 % (11.6-14.8); WHITE BLOOD COUNT 8.4 K/UL (4.8-10.8)
[2018-08-19 03:09] VITALS: BP 119/89
[2018-08-19 03:15] LABS: ANION GAP 8 mmol/L (5-15); BLOOD UREA NITROGEN 12 mg/dL (7-18); CALCIUM 8.8 MG/DL (8.5-10.1); CARBON DIOXIDE 27 MMOL/L (21-32); CHLORIDE 105 MMOL/L (98-107); CREATININE 0.8 MG/DL (0.55-1.30); POTASSIUM 3.2 MMOL/L (3.5-5.1); SODIUM 140 MMOL/L (136-145)
[2018-08-19] MEDS ORDERED: Morphine Sulfate 4mg/ml Inj (IV USE ONLY) IVP ONE (03:15)
[2018-08-19 03:20] LABS: ALANINE AMINOTRANSFERASE 22 U/L (12-78); ALBUMIN 4.3 G/DL (3.4-5.0); ALBUMIN/GLOBULIN RATIO 1.2 (1.0-2.7); ALKALINE PHOSPHATASE 51 U/L (46-116); ASPARTATE AMINO TRANSFERASE 17 U/L (15-37); BILIRUBIN,TOTAL 0.4 MG/DL (0.2-1.0)
--- NOTE | 2018-08-19 03:40 | NUR ---
ED Nurse Note: Urine sample sent to lab.
[2018-08-19 04:25] LABS: BILIRUBIN, URINE NEGATIVE (NEGATIVE); COLOR,URINE RED; GLUCOSE, URINE (UA) NEGATIVE (NEGATIVE); KETONES,URINE 2+ (NEGATIVE); LEUKOCYTE ESTERASE ,URINE 1+ (NEGATIVE); NITRITE,URINE NEGATIVE (NEGATIVE); PH,URINE 5 (4.5-8.0); PROTEIN,URINE 3+ (NEGATIVE); UROBILINOGEN,URINE NORMAL MG/DL (0.0-1.0)
[2018-08-19 04:27] LABS: APPEARANCE,URINE CLOUDY
[2018-08-19] MEDS ORDERED: MACROBID100 MG ORAL (04:55)
[2018-08-19] MEDS ORDERED: IBUPROFEN600 MG ORAL (04:55)
--- NOTE | 2018-08-19 04:56 | Emergency Room Report ---
History of Present Illness General Chief Complaint: Abdominal Pain Source: Patient, Medical Record Present Illness HPI Is a 23-year-old female with a history of endometriosis but no confirm up scopic biopsied. She presents with chief point abdominal pain. This a recurrent issue for her. Pain is diffuse in nature. Sharp. 9 out of 10. She has nausea and vomiting. No diarrhea. No fever chills. Denies any other complaint. Just finished a course of Keflex for UTI. Allergies: Uncoded Allergies: ANETHESIA (Allergy, Severe, 04/24/18) Patient History Past Medical History: see triage record, old chart reviewed Past Surgical History: other Pertinent Family History: none Social History: Denies: smoking Last Menstrual Period: currently on Menstrual cycle Now: No : 0 Para: 0 Immunizations: other Reviewed Nursing Documentation: PMH: Agreed; PSxH: Agreed Nursing Documentation-PMH Past Medical History: No History, Except For Hx Neurological Problems: Yes - malignant hypothermia Review of Systems Eye: Denies: eye pain, blurred vision ENT: Denies: ear pain, nose congestion, throat swelling Respiratory: Denies: cough, shortness of breath Cardiovascular: Denies: chest pain, palpitations Gastrointestinal: Reports: abdominal pain, nausea, vomiting; Denies: diarrhea Musculoskeletal: Denies: back pain, joint pain Skin: Denies: rash Neurological: Denies: headache, numbness Endocrine: Denies: increased thirst, increased urine Hematologic/Lymphatic: Denies: easy bruising All Other Systems: negative except mentioned in HPI Physical Exam Vital Signs Date Time Temp Pulse Resp B/P (MAP) Pulse Ox O2 Delivery O2 Flow Rate FiO2 08/19/18 02:12 98.2 84 18 134/70 100 Room Air vitals normal Sp02 EP Interpretation: reviewed, normal General Appearance: well appearing, no apparent distress, alert Head: normocephalic, atraumatic Eyes: bilateral eye PERRL, bilateral eye EOMI ENT: hearing grossly normal, normal pharynx Neck: full range of motion, supple, no meningismus Respiratory: chest non-tender, lungs clear, normal breath sounds Cardiovascular #1: regular rate, rhythm, no murmur Gastrointestinal: normal bowel sounds, no mass, no organomegaly, no bruit, non- distended, tenderness Musculoskeletal: back normal, gait/station normal, normal range of motion Psychiatric: mood/affect normal Skin: warm/dry Medical Decision Making Diagnostic Impression: Primary Impression: Abdominal pain Qualified Codes: R10.84 - Generalized abdominal pain Additional Impression: UTI (urinary tract infection) Qualified Codes: N30.00 - Acute cystitis without hematuria ER Course Patient with abdominal pain. This could be cyclic vomiting syndrome or tenderness induced hyperemesis. No evidence of acute abdomen. Pain is controlled now. She still show evidence of UTI. We'll put on a different class of antibiotics. We'll discharge home. Last Vital Signs Date Time Temp Pulse Resp B/P (MAP) Pulse Ox O2 Delivery O2 Flow Rate FiO2 08/19/18 03:09 98.2 74 15 119/89 100 Room Air Status: improved Disposition: HOME, SELF-CARE Condition: Stable Scripts Nitrofurantoin Monohyd/M-Cryst (Nitrofurantoin Kingfisher-Mcr 100 mg) 100 Mg Capsule 100 MG ORAL Q12H, #14 CAP Prov: Marco Mitchell MD 08/19/18 Ibuprofen* (MOTRIN*) 600 Mg Tablet 600 MG ORAL THREE TIMES A DAY, #30 TAB 0 Refills Prov: Marco Mitchell MD 08/19/18 Referrals: [facility]ERR[facility] (PCP) Patient Instructions: Abdominal Pain, Adult Additional Instructions: Follow-up with your Dr. in 3-5 days. You may benefit from referral to see a paint tester. Return of worse. Marco Mitchell MD Aug 19, 2018 04:56
[2018-08-19 05:04] VITALS: BP 124/87
--- NOTE | 2018-08-19 05:04 | NUR ---
ER DISCHARGE NOTE: Patient is cleared to be discharged per ERMD, pt is aox4, on room air, with stable vital signs. pt was given dc and prescription instructions, pt was able to verbalize understanding, pt id band and iv site removed without complications. pt is able to ambulate with steady gait. pt took all belongings.
[2018-08-19 05:06] VITALS: BP 124/87
== END 2018-08-19 05:07 | disposition home or self-care (01) ==
LOC: EMR 02:30
DX: R10.84 Generalized abdominal pain (principal); N39.0 Urinary tract infection, site not specified
CPT/HCPCS: 36415; 80053; 81003; 81025; 83690; 85025; 87086; 96361; 96374; 96375; 99284; J1885; J2270; J2405

== ENCOUNTER 2019-06-24 22:47 | Emergency (ER) | payer OTHER ==
[~2019-06-24] VITALS: Ht 157.5 cm; Wt 61.2 kg
[~2019-06-24 22:47] MED LIST changes: +DIPHENHYDRAMINE25 M1 ORAL; +RANITIDINE HCL150 MG ORAL
[2019-06-24 23:10] VITALS: BP 108/60
--- NOTE | 2019-06-24 23:10 | NUR ---
ED Nurse Note: Pt walked into ED from home for c/o lower abdominal pain onset 4 hours ago. Pt states she has sharp 8/10 abdominal pain nonradiating that is the same pain that occurs every month in association with her menstrual cycle. Pt is currently on her menstrual cycle. Pt is aaox4, no cardiac or respiratory distress noted, ambulatory with steady gait. Will continue to monitor.
--- NOTE | 2019-06-24 23:10 | NUR ---
ED Nurse Note: Pt also reports n/v.
[2019-06-25] MEDS ORDERED: NAPROXEN250 MG ORAL (00:42)
[2019-06-25] MEDS ORDERED: ZOFRAN4 MG ORAL (00:42)
--- NOTE | 2019-06-25 00:43 | Emergency Room Report ---
History of Present Illness General Chief Complaint: Abdominal Pain Source: Patient Present Illness HPI 23-year-old female presents with abdominal cramps, patient reports that she started to have vaginal bleeding she just tired her period, at 5 PM she endorses aches no aggravating relieving factors severity is mild, moderate, intermittent, lasting a few minutes, patient states that she also has nausea and vomiting associated with these cramps, she states this happens every time she has a. And is requesting some pain management. Allergies: Uncoded Allergies: ANETHESIA (Allergy, Severe, 04/24/18) Patient History Past Medical History: see triage record Last Menstrual Period: 06/24/2019 Reviewed Nursing Documentation: PMH: Agreed; PSxH: Agreed Nursing Documentation-PMH Past Medical History: No History, Except For Hx Neurological Problems: Yes - malignant hypothermia Review of Systems All Other Systems: negative except mentioned in HPI Physical Exam Vital Signs Date Time Temp Pulse Resp B/P (MAP) Pulse Ox O2 Delivery O2 Flow Rate FiO2 06/24/19 22:57 97.9 61 14 108/60 (76) 97 Room Air Sp02 EP Interpretation: reviewed, normal General Appearance: well appearing, no apparent distress, alert, other - On her cell phone Head: normocephalic, atraumatic Eyes: bilateral eye PERRL, bilateral eye EOMI ENT: uvula midline, moist mucus membranes Neck: supple, thyroid normal, supple/symm/no masses Respiratory: lungs clear, no respiratory distress, no retraction, no accessory muscle use Cardiovascular #1: normal peripheral pulses, regular rate, rhythm, no edema, no gallop, no murmur Gastrointestinal: non tender, soft, no guarding, no rebound Musculoskeletal: normal inspection Neurologic: alert, oriented x3 Psychiatric: mood/affect normal Skin: no rash, warm/dry Medical Decision Making Diagnostic Impression: Primary Impression: Abdominal pain Qualified Codes: R10.84 - Generalized abdominal pain ER Course 23-year-old female differential diagnosis for her abdominal pain includes abdominal pain, menstrual pain, diverticulitis, appendicitis, ovarian cyst Patient when distracted has minimal abdominal pain She denies any dysuria Patient given Toradol and Zofran IM with improvement in her symptoms, patient is currently tolerating p.o. drink 2 cups of water Counseled patient we will provide her with Zofran and Naprosyn Disposition home with return precautions Last Vital Signs Date Time Temp Pulse Resp B/P (MAP) Pulse Ox O2 Delivery O2 Flow Rate FiO2 06/24/19 23:10 97.9 61 14 108/60 97 Room Air Disposition: HOME, SELF-CARE Condition: Stable Scripts Naproxen* (NAPROSYN*) 250 Mg Tablet 250 MG ORAL TID PRN for For Pain, #30 TAB 0 Refills Prov: Jose Chang MD 06/25/19 Ondansetron (Zofran) 4 Mg Tablet 4 MG ORAL Q8H PRN for Nausea & Vomiting, #15 TAB 0 Refills Prov: Jose Chang MD 06/25/19 Referrals: [facility] Patient Instructions: Abdominal Pain, Adult Additional Instructions: The patient was provided with discharge instructions, notified to follow-up with a primary care doctor and or specialist in the next 24-48 hours, and to return to the ED if they have worsening of their symptoms. Please note that this report is being documented using [employer] technology. This can lead to erroneous entry secondary to incorrect interpretation by the dictating instrument. Jose Chang MD Jun 25, 2019 00:43
[2019-06-25] MEDS ORDERED: Ketorolac 30mg Inj IM ONE (00:45)
[2019-06-25 01:05] VITALS: BP 108/72
--- NOTE | 2019-06-25 01:05 | NUR ---
ER DISCHARGE NOTE: Patient is cleared to be discharged per ERMD, pt is aox4, on room air, with stable vital signs. pt was given dc and prescription instructions, pt was able to verbalize understanding. pt is able to ambulate with steady gait. pt took all belongings.
== END 2019-06-25 01:05 | disposition home or self-care (01) ==
LOC: EMR 23:30
DX: R10.84 Generalized abdominal pain (principal); N93.9 Abnormal uterine and vaginal bleeding, unspecified; Z88.4 Allergy status to anesthetic agent
CPT/HCPCS: 81025; 96372; J1885; J2405; Z7502; 99283